=== PATIENT | female | born 1980 | race Caucasian/White ===

== ENCOUNTER 2019-03-23 06:17 | Emergency (ER) | payer BC ==
[2019-03-23] MEDS ORDERED: Robitussin AC Syrup Unit Dose Cup PO PRN (06:45)
[2019-03-23] MEDS ORDERED: PROVENTIL 2.5 MG/3 ML NEB IH ONE (06:45)
--- NOTE | 2019-03-23 06:49 | ERPHSYRPT ---
- History of Present Illness Time Seen by Provider: 03/23/19 06:47 Source: patient Exam Limitations: no limitations Patient Subjective Stated Complaint: pt states that cough began stephanie night and has increasingly gotten worse, pt state that she has taken otc medication with tylenol in it, pt states that she has been running fever, pt states that she has heaviness to chest and pain to neck due to coughing, pt states that she has productive cough with white/ clear sputum, pt states that she has trouble breathing due to coughing, pt states that she took OTC this morning at 0400 due to 103.4 temp Triage Nursing Assessment: pt ambulated into the er, pt axo x4, pt is tachycardic, hypertensive, pt has dry hacking cough, lung sounds are coarse in lower lobes Physician History: pt states that cough began stephanie night and has increasingly gotten worse, pt state that she has taken otc medication with tylenol in it, pt states that she has been running fever, pt states that she has heaviness to chest and pain to neck due to coughing, pt states that she has productive cough with white/ clear sputum, pt states that she has trouble breathing due to coughing, pt states that she took OTC this morning at 0400 due to 103.4 temp Timing/Duration: day(s) (3-4 days) Cough Quality/Degree: moderate, productive cough, sputum Associated Symptoms: fever, chills International travel in last 2 weeks: No Allergies/Adverse Reactions: No Known Drug Allergies Allergy (Verified 03/23/19 06:22) Home Medications: Amlodipine Besylate 5 mg [Norvasc 5 mg] 5 mg PO DAILY 04/19/14 [History] Triamterene/Hydrochlorothiazid [Triamterene-Hctz 37.5-25 mg Cp] 1 each PO DAILY 04/19/14 [History] Benazepril HCl 10 mg [Lotensin 10 MG] 10 mg PO DAILY 03/23/19 [History] Hx Tetanus, Diphtheria Vaccination/Date Given: Yes Hx Influenza Vaccination/Date Given: No Hx Pneumococcal Vaccination/Date Given: No - Review of Systems Constitutional: No Fever, No Chills Eyes: No Symptoms Ears, Nose, & Throat: No Symptoms Respiratory: Cough, No Dyspnea Cardiac: No Chest Pain, No Edema, No Syncope Abdominal/Gastrointestinal: No Abdominal Pain, No Nausea, No Vomiting, No Diarrhea Genitourinary Symptoms: No Dysuria Musculoskeletal: No Back Pain, No Neck Pain Skin: No Rash Neurological: No Dizziness, No Focal Weakness, No Sensory Changes Psychological: No Symptoms Endocrine: No Symptoms All Other Systems: Reviewed and Negative - Past Medical History Pertinent Past Medical History: Yes Neurological History: No Pertinent History ENT History: No Pertinent History Cardiac History: Hypertension Respiratory History: No Pertinent History Endocrine Medical History: No Pertinent History Musculoskeletal History: No Pertinent History GI Medical History: Hernia History: No Pertinent History Psycho-Social History: No Pertinent History Female Reproductive Disorders: Other Other Medical History: 2008. Cholecystectomy 2012 - Past Surgical History Past Surgical History: Yes Neuro Surgical History: No Pertinent History Cardiac: No Pertinent History Respiratory: No Pertinent History Gastrointestinal: Cholecystectomy Genitourinary: No Pertinent History Musculoskeletal: No Pertinent History Female Surgical History: Section - Social History Smoking Status: Never smoker Exposure to second hand smoke: No Drug Use: none Patient Lives Alone: No - Female History Hx Last Menstrual Period: 03/21/19 Hx Now: No - Nursing Vital Signs Nursing Vital Signs: Initial Vital Signs Temperature 98.6 F 03/23/19 06:25 Pulse Rate 120 H 03/23/19 06:25 Respiratory Rate 15 03/23/19 06:25 Blood Pressure 144/112 03/23/19 06:25 O2 Sat by Pulse Oximetry 96 03/23/19 06:25 - Physical Exam General Appearance: no apparent distress, alert Eye Exam: PERRL/EOMI, eyes nml inspection Ears, Nose, Throat Exam: normal ENT inspection, TMs normal, pharynx normal, moist mucous membranes Neck Exam: normal inspection, non-tender, supple, full range of motion Respiratory Exam: normal breath sounds, diminished breath sounds, rhonchi, wheezing, No respiratory distress Cardiovascular Exam: regular rate/rhythm, normal heart sounds Gastrointestinal/Abdomen Exam: soft, No tenderness Back Exam: normal inspection, No CVA tenderness, No vertebral tenderness Extremity Exam: normal inspection, normal range of motion Neurologic Exam: alert, oriented x 3, cooperative, normal mood/affect, sensation nml, No motor deficits Skin Exam: normal color, warm, dry, No rash Lymphatic Exam: No adenopathy SpO2: 96 - Course Nursing assessment & vital signs reviewed: Yes - Radiology Exams Chest X-ray Interpretation: Reviewed by me (bibasilar infiltrates) Ordered Tests: Active Orders 24 hr Category Date Time Status CHEST 2 VIEWS (PA AND LAT) Stat Exams 03/23/19 07:00 Taken BMP Stat Lab 03/23/19 07:05 Completed CBC W DIFF Stat Lab 03/23/19 07:05 Completed Peak Expiratory Flow Rate ONCE RT 03/23/19 07:30 Completed Respiratory Therapy Assessment DAILY RT 03/23/19 07:30 Completed Medication Summary Generic Name Dose Route Start Last Admin Trade Name Freq PRN Reason Stop Dose Admin Guaifenesin/Codeine Phosphate 10 ml 03/23/19 06:45 03/23/19 06:52 Robitussin Ac Syrup Unit Dose Cup PO 04/22/19 06:44 10 ml QIDP PRN Administration COUGH Ceftriaxone Sodium/Dextrose 1 g in 50 mls @ 100 mls/hr 03/23/19 07:41 07:48 Rocephin 1 Gm-D5w 50 Ml Bag IV 03/23/19 08:10 200 ml/hr STAT STA 200 mls/hr Administration Discontinued Medications Generic Name Dose Route Start Last Admin Trade Name Freq PRN Reason Stop Dose Admin Albuterol Sulfate 2.5 mg 03/23/19 06:45 03/23/19 07:10 Proventil 2.5 Mg/3 Ml Neb IH 03/23/19 06:46 2.5 mg STAT ONE Administration Albuterol/Ipratropium Confirm 03/23/19 06:59 Duoneb 0.5-3 Mg/3 Ml Neb Administered 03/23/19 07:00 Dose 3 ml IH .STK-MED ONE Ceftriaxone Sodium Confirm 03/23/19 07:52 Rocephin 1000 Mg Inj Administered 03/23/19 07:53 Dose 1,000 mg .ROUTE .STK-MED ONE Ceftriaxone Sodium/Dextrose Confirm 03/23/19 07:46 Rocephin 1 Gm-D5w 50 Ml Bag Administered 03/23/19 07:47 Dose 1 g in 50 mls @ ud IV .STK-MED ONE Lidocaine HCl Confirm 03/23/19 07:52 Xylocaine 1% Hcl 20 Ml Mdv Administered 03/23/19 07:53 Dose 3 ml .ROUTE .STK-MED ONE Lab/Rad Data: Laboratory Result Diagrams 03/23/19 07:05 03/23/19 07:05 Laboratory Results 03/23/19 03/23/19 03/23/19 Range/Units 07:08 07:05 07:05 WBC 11.3 H (4.0-10.5) K/mm3 RBC 5.21 (4.1-5.4) M/mm3 Hgb 13.8 (12.0-16.0) gm/dl Hct 42.7 (35-47) % MCV 82.0 (78-100) fl MCH 26.5 (26-32) pg MCHC 32.3 (32-36) g/dl RDW 14.2 H (11.5-14.0) % Plt Count 303 (150-450) K/mm3 MPV 9.1 (6-9.5) fl Gran % 78.1 H (36.0-66.0) % Eos # (Auto) 0.06 (0-0.5) Absolute Lymphs (auto) 1.22 (1.0-4.6) Absolute Monos (auto) 1.16 (0.0-1.3) Lymphocytes % 10.8 L (24.0-44.0) % Monocytes % 10.3 (0.0-12.0) % Eosinophils % 0.5 (0.00-5.0) % Basophils % 0.3 (0.0-0.4) % Absolute Granulocytes 8.80 H (1.4-6.9) Basophils # 0.03 (0-0.4) Sodium 136 L (137-145) mmol/L Potassium 3.8 (3.5-5.1) mmol/L Chloride 99 (98-107) mmol/L Carbon Dioxide 29 (22-30) mmol/L Anion Gap 12.2 (5-15) MEQ/L BUN 10 (7-17) mg/dL Creatinine 0.95 (0.52-1.04) mg/dL Estimated GFR > 60.0 ML/MIN Glucose 123 H (74-106) mg/dL Calcium 9.3 (8.4-10.2) mg/dL Influenza Type A Ag NEGATIVE (NEGATIVE) Influenza Type B Ag NEGATIVE (NEGATIVE) RSV (PCR) NEGATIVE (Negative) - Progress Progress: improved Air Movement: good Blood Culture(s) Obtained: No Antibiotics given: Yes Counseled pt/family regarding: lab results, diagnosis, need for follow-up, rad results - Departure Departure Disposition: Home Clinical Impression: Pneumonia Qualifiers: Pneumonia type: due to unspecified organism Laterality: bilateral Lung location : lower lobe of lung Qualified Code(s): J18.9 - Pneumonia, unspecified organism Condition: Stable Critical Care Time: No Referrals: FARIDA MASTERSON [Primary Care Provider] - Instructions: Pneumonia, Adult (DC) Additional Instructions: Discharge/Care Plan WYATT WELLS was seen on 03/23/19 in the Emergency Room. The patient was counseled regarding Diagnosis,Lab results, Imaging studies, need for follow up and when to return to the Emergency Room. Prescriptions given: Discharge Note I have spoken with the patient and/or caregivers. I have explained the patient' s condition, diagnosis and treatment plan based on the information available to me at this time. I have answered the patient's and/or caregiver's questions and addressed any concerns. The patient and/or caregivers have as good understanding of the patient's diagnosis, condition and treatment plan as can be expected at this point. The vital signs have been stable. The patient's condition is stable and appropriate for discharge from the emergency department. The patient will pursue further outpatient evaluation with the primary care physician or other designated or consulting physician as outlined in the discharge instructions. The patient and/or caregivers are agreeable to this plan of care and follow-up instructions have been explained in detail. The patient and/or caregivers have received these instruction. The patient/and or caregivers are aware that any significant change in condition or worsening of symptoms should prompt an immediate return to this or the closest emergency department or call 911. WYATT WELLS was seen on 03/23/19 n the Emergency Room. At that time you were treated for an emergent condition, during your visit Laboratory, Radiology and/or other procedures may have been ordered. It is very important that you follow-up with your Primary Care Physician FARIDA MASTERSON within the next 24-48 hours to review your Emergency Room visit and the final results of testing that was ordered. Some test results such as Urine Cultures, Blood Cultures, and other cultures if ordered will not be finalized for 24-48 hours. If you do not have a Primary Care Provider please call the medical records department at [phone] ext [phone] to obtain a copy of your results or you may sign into our patient portal to obtain these results by visiting us @ [email or web address] and completing the following steps: 1. Click on the Patient Portal link 2. Click the Patient Self Enrollment Link to complete the enrollment form and entering your 3. Once the enrollment form is completed you will receive an email with a temporary ID and password at the email address you provided. 4. Next choose a user name and password. Your user name must be at least 4 characters long and your password must be at least 4 characters long. 5. Choose a security question from the list and provide your answer to the question. If you already have signed into the Health Portal you may access your Health Care Information 17/10 by the following steps: 1. Login to our website @ [email or web address] 2. Enter your original user name and password. FAQS The [facility] Health Portal is an online tool that contains your Lab Results, Radiology Reports, Visit History, Discharge Instructions and Health Summary Lab and Radiology Results will not be available for 72 hours on the portal. The Portal is a secure site, passwords are encryted and URLs are re-written so they cannot be copied and pasted. You and authorized family members are the only ones who can access your Portal. Also there is a timeout feature that protects your information if you leave the Portal page open. If you have technical difficulty please use the Contact Us link on the page this will allow you to submit any questions you have regarding the Portal or you may contact the Medical Record Department at [phone]. Prescriptions: Cephalexin Mh 500 mg [Keflex 500 mg] 500 mg PO Q6H #40 capsule Albuterol Sulfate [Proair Hfa] 8.5 gm IH QID #1 hfa.aer.[id number] Benzonatate [Tessalon Perle] 100 mg PO QID #30 capsule
[2019-03-23] MEDS ORDERED: Robitussin AC Syrup Unit Dose Cup ONE (06:51)
[2019-03-23] MEDS ORDERED: DUONEB 0.5-3 MG/3 ml Neb IH ONE (06:59)
[2019-03-23 07:25] LABS: ANION GAP 12.2 MEQ/L (5-15); BLOOD UREA NITROGEN 10 mg/dL (7-17); CHLORIDE 99 mmol/L (98-107); Calcium 9.3 mg/dL (8.4-10.2); Carbon Dioxide 29 mmol/L (22-30); Creatinine 1 0.95 mg/dL (0.52-1.04); Glucose 123 mg/dL (74-106); Potassium 3.8 mmol/L (3.5-5.1); SODIUM 136 mmol/L (137-145)
[2019-03-23 07:28] LABS: BASOPHIL % 0.3 % (0.0-0.4); Basophil (Absolute #) 0.03 (0-0.4); Eosinophil % 0.5 % (0.00-5.0); Eosinophil (Absolute #) 0.06 (0-0.5); Hematocrit 42.7 % (35-47); Hemoglobin 13.8 gm/dl (12.0-16.0); Lymphocyte (Absolute #) 1.22 (1.0-4.6); Lymphocytes % 10.8 % (24.0-44.0); Mean Corpuscular Hemoglobin 26.5 pg (26-32); Mean Corpuscular Hgb Concent. 32.3 g/dl (32-36); Mean Platelet Volume 9.1 fl (6-9.5); Monocyte (Absolute #) 1.16 (0.0-1.3); Monocytes % 10.3 % (0.0-12.0); Neutrophil % 78.1 % (36.0-66.0); Platelet Count 303 K/mm3 (150-450); Red Blood Count 5.21 M/mm3 (4.1-5.4); Red Cell Distribution Width 14.2 % (11.5-14.0); White Blood Count 11.3 K/mm3 (4.0-10.5)
[2019-03-23] MEDS ORDERED: ROCEPHIN 1 Gm-D5w 50 ml Bag** 0 G/0 ML IVPB IV ONE (07:46)
[2019-03-23] MEDS: ROCEPHIN 1 Gm-D5w 50 ml Bag** 1 G/50 ML IVPB IV STA ×2 (07:48→08:16)
[2019-03-23 07:51] LABS: INFLUENZA A NEGATIVE (NEGATIVE); INFLUENZA B NEGATIVE (NEGATIVE); RESPIRATORY SYNCTIAL VIRUS NEGATIVE (Negative)
[2019-03-23] MEDS ORDERED: XYLOCAINE 1% HCL 20 ML MDV ONE (07:52)
[2019-03-23] MEDS ORDERED: Rocephin 1000 MG INJ ONE (07:52)
[2019-03-23 08:07] VITALS: BP 103/64; PULSE 83; O2SAT 93
[2019-03-23] MEDS ORDERED: Rocephin 1000 MG INJ IM ONE (08:16)
--- NOTE | 2019-03-23 11:40 | XRAY ---
Indication: Fever and cough. Comparison: June 09, 2014. PA/lateral chest demonstrates new left mid to lower lung infiltrate. Remaining heart, right lung, and bony thorax normal.
== END 2019-03-23 08:18 | disposition home or self-care (01) ==
LOC: ED 06:17
DX: J18.9 Pneumonia, unspecified organism (principal)
CPT/HCPCS: 36415; 71046; 80048; 85025; 87631; 94150; 94640; 96372; 99284; J0696; J7609; A9270-GY

== ENCOUNTER 2019-07-12 18:59 | Emergency (ER) | payer BC ==
--- NOTE | 2019-07-12 19:03 | ERPHSYRPT ---
- History of Present Illness Time Seen by Provider: 07/12/19 19:03 Source: patient Exam Limitations: no limitations Physician History: This is a 38-year-old obese white female who presents to the emergency department with right ankle pain. Patient was taking out her trash when she tripped and fell and rolled her right ankle. Patient states she can walk on her foot but it hurts to do so. She also has noted that there is significant lateral/outside ankle swelling. Method of Injury: fell Occurred: just prior to arrival Quality: aching, throbbing Severity of Pain-Max: moderate Severity of Pain-Current: moderate Lower Extremities Pain: ankle: right Modifying Factors: Improves With: immobilization, movement Associated Symptoms: other Allergies/Adverse Reactions: No Known Drug Allergies Allergy (Verified 03/23/19 06:22) Home Medications: Amlodipine Besylate 5 mg [Norvasc 5 mg] 5 mg PO DAILY 04/19/14 [History] Triamterene/Hydrochlorothiazid [Triamterene-Hctz 37.5-25 mg Cp] 1 each PO DAILY 04/19/14 [History] Benazepril HCl 10 mg [Lotensin 10 MG] 10 mg PO DAILY 03/23/19 [History] Hx Tetanus, Diphtheria Vaccination/Date Given: Yes Hx Influenza Vaccination/Date Given: No Hx Pneumococcal Vaccination/Date Given: No Travel Risk - International Travel Have you traveled outside of the country in past 3 weeks: No Have you or anyone close to you been diagnosed with or: No Do your reside in a community with a known COVID-19 case?: Yes - Coronavirus Screening Has patient experienced Coronavirus symptoms: No - Review of Systems Constitutional: No Symptoms Eyes: No Symptoms Ears, Nose, & Throat: No Symptoms Respiratory: No Symptoms Cardiac: No Symptoms Abdominal/Gastrointestinal: No Symptoms Genitourinary Symptoms: No Symptoms Musculoskeletal: Fall, Injury (Right ankle), Joint Pain Skin: No Symptoms Neurological: No Symptoms Psychological: No Symptoms Endocrine: No Symptoms Hematologic/Lymphatic: No Symptoms Immunological/Allergic: No Symptoms All Other Systems: Reviewed and Negative - Past Medical History Pertinent Past Medical History: Yes Neurological History: No Pertinent History ENT History: No Pertinent History Cardiac History: Hypertension Respiratory History: No Pertinent History Endocrine Medical History: No Pertinent History Musculoskeletal History: No Pertinent History GI Medical History: Hernia History: No Pertinent History Psycho-Social History: No Pertinent History Female Reproductive Disorders: Other Other Medical History: 2008. Cholecystectomy 2013 - Past Surgical History Past Surgical History: Yes Neuro Surgical History: No Pertinent History Cardiac: No Pertinent History Respiratory: No Pertinent History Gastrointestinal: Cholecystectomy Genitourinary: No Pertinent History Musculoskeletal: No Pertinent History Female Surgical History: Section - Social History Smoking Status: Never smoker Exposure to second hand smoke: No Drug Use: none Patient Lives Alone: No - Nursing Vital Signs Nursing Vital Signs: Initial Vital Signs Temperature 98.3 F 07/12/19 18:59 Pulse Rate 112 H 07/12/19 18:59 Respiratory Rate 18 07/12/19 18:59 Blood Pressure 171/109 07/12/19 18:59 O2 Sat by Pulse Oximetry 97 07/12/19 18:59 Pain Scale Pain Intensity 5 - Physical Exam General Appearance: no apparent distress, alert, anxiety, obese Eyes, Ears, Nose, Throat Exam: normal ENT inspection, moist mucous membranes Neck Exam: normal inspection, non-tender, supple, full range of motion Cardiovascular/Respiratory Exam: chest non-tender Gastrointestinal/Abdominal Exam: non-tender Back Exam: normal inspection, normal range of motion, No CVA tenderness, No vertebral tenderness Hips Exam: bilateral: non-tender, normal inspection, normal range of motion, no evidence of injury Legs Exam: bilateral leg: non-tender, normal inspection, normal range of motion , no evidence of injury Knees Exam: bilateral knee: non-tender, normal inspection, normal range of motion, no evidence of injury Ankle Exam: right ankle: soft tissue tenderness, swelling (Laterally), left ankle: non-tender, normal inspection, normal range of motion, no evidence of injury Foot Exam: bilateral foot: non-tender, normal inspection, normal range of motion , no evidence of injury Neuro/Tendon Exam: normal sensation, normal motor functions, normal tendon functions, responds to pain Mental Status Exam: alert, oriented x 3, cooperative Skin Exam: normal color, warm, dry SpO2 Interpretation: normal O2 Delivery: Room Air - Course Nursing assessment & vital signs reviewed: Yes Ordered Tests: Active Orders 24 hr Category Date Time Status ANKLE (3 VIEWS) Stat Exams 07/12/19 19:23 Taken Medication Summary Discontinued Medications Generic Name Dose Route Start Last Admin Trade Name Freq PRN Reason Stop Dose Admin Oxycodone/Acetaminophen 1 tab 04/17/20 20:52 07/12/19 20:55 Percocet Tablet 5/325mg PO 07/12/19 20:53 1 tab STAT STA Administration Oxycodone/Acetaminophen Confirm 07/12/19 20:54 Percocet Tablet 5/325mg Administered 07/12/19 20:55 Dose 1 tab .ROUTE .STK-MED ONE - Progress Progress Note: 07/12/19 21:22 X-ray of right ankle reveals no evidence of any acute fracture or dislocation. Counseled pt/family regarding: diagnosis, need for follow-up, rad results - Departure Departure Disposition: Home Clinical Impression: Right ankle sprain Condition: Stable Critical Care Time: No Referrals: FARIDA MASTERSON [Primary Care Provider] - Additional Instructions: Ice pack to area 3 times a day for the next 3 days. Add ibuprofen to your pain regimen. Take with food. Follow-up with your primary care physician for persistent pain. Prescriptions: Oxycodone HCl/Acetaminophen [Percocet 5-325 mg Tablet] 1 each PO Q8H PRN PRN #6 tablet MDD 3 PRN Reason: Pain
[2019-07-12] MEDS ORDERED: PERCOCET TABLET 5/325MG PO STA (20:52)
[2019-07-12] MEDS ORDERED: PERCOCET TABLET 5/325MG ONE (20:54)
[2019-07-12 21:00] VITALS: BP 144/87; O2SAT 99
[2019-07-12 21:45] VITALS: PULSE 95
--- NOTE | 2019-07-12 22:35 | XRAY ---
Indication: Pain and swelling following fall. Comparison: March 12, 2018. 3 views of the right ankle demonstrates new anterolateral soft tissue swelling and stable small heel spurs. No other bony, articular, or soft tissue abnormalities.
== END 2019-07-12 21:41 | disposition home or self-care (01) ==
LOC: ED 18:59
DX: S93.401A Sprain of unspecified ligament of right ankle, initial encounter (principal); W01.0XXA Fall on same level from slipping, tripping and stumbling without subsequent striking against object, initial encounter; M25.571 Pain in right ankle and joints of right foot
CPT/HCPCS: 73610; 99284; A9270-GY

== ENCOUNTER 2022-09-10 03:04 | Emergency (ER) | payer BC ==
[2022-09-10 04:17] LABS: INFLUENZA A NEGATIVE (NEGATIVE); INFLUENZA B NEGATIVE (NEGATIVE); RESPIRATORY SYNCTIAL VIRUS NEGATIVE (NEGATIVE); SARS-CoV-2 Xpert Express NEGATIVE (NEGATIVE)
[2022-09-10] MEDS ORDERED: HYDROCODONE-ACETAMIN 2.5-108/5 ML SOLUTION PO STA (04:35)
[2022-09-10] MEDS ORDERED: DELTASONE 20 MG PO ONE (04:35)
--- NOTE | 2022-09-10 04:36 | ERPHSYRPT ---
- History of Present Illness Time Seen by Provider: 09/10/22 03:40 Source: patient Exam Limitations: no limitations Patient Subjective Stated Complaint: pt states productive cough for the past 6 days Triage Nursing Assessment: pt ambulated into the er; pt is axo x4; c/o cough; denies SOB; pt states pain with cough and deep breath; clear lung sounds in all lobes; afebrile; dry hacky cough present; c/o sorethroat; hypertensive; skin PDW Physician History: This is an overweight 41-year-old white female patient of Dr. Hinds who has had a productive cough for 6 days. She tried drinking fluids using her inhaler but her symptoms persisted. He denies a sore throat denies shortness of breath and has chest pain only with coughing. She has yellowish sputum with cough. Patient has a history of obesity, gastroesophageal reflux disease and hypertension. Timing/Duration: day(s) (6) Cough Quality/Degree: mild, productive cough, sputum Possible Cause: occasional episodes (Yellowish) Modifying Factors: Improves With: albuterol inhaler, coughing Associated Symptoms: chest pain/soreness, cough (With cough only) Allergies/Adverse Reactions: No Known Drug Allergies Allergy (Verified 09/10/22 03:05) Home Medications: Amlodipine Besylate 5 mg [Norvasc 5 mg] 5 mg PO DAILY 04/19/14 [History] Triamterene/Hydrochlorothiazid [Triamterene-Hctz 37.5-25 mg Cp] 1 each PO DAILY 04/19/14 [History] Losartan Potassium 50 mg PO DAILY 09/10/22 [History] Omeprazole 20 mg PO DAILY 09/10/22 [History] Hx Tetanus, Diphtheria Vaccination/Date Given: Yes Hx Influenza Vaccination/Date Given: Yes Hx Pneumococcal Vaccination/Date Given: No Travel Risk - International Travel Have you traveled outside of the country in past 3 weeks: No - Coronavirus Screening Are you exhibiting any of the following symptoms?: Yes Symptoms: Fever, Cough: New Onset, Shortness of Breath, Headaches/Body Aches/Fatigue Close contact with a COVID-19 positive Pt in past 14-21 Days: No - Vaccine Status Have you recieved a Covid-19 vaccination: Yes 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: [place] - Vaccination Dates Date of 2cond Vaccination (if applicable): unknown - Review of Systems Constitutional: No Symptoms Eyes: No Symptoms Ears, Nose, & Throat: No Symptoms Respiratory: Cough Cardiac: No Symptoms Abdominal/Gastrointestinal: No Symptoms Genitourinary Symptoms: No Symptoms Musculoskeletal: No Symptoms Skin: No Symptoms Neurological: No Symptoms Psychological: No Symptoms Endocrine: No Symptoms Hematologic/Lymphatic: No Symptoms Immunological/Allergic: No Symptoms All Other Systems: Reviewed and Negative - Past Medical History Pertinent Past Medical History: Yes Neurological History: No Pertinent History ENT History: No Pertinent History Cardiac History: Hypertension Respiratory History: No Pertinent History Endocrine Medical History: No Pertinent History Musculoskeletal History: No Pertinent History GI Medical History: GERD, Hernia History: No Pertinent History Psycho-Social History: No Pertinent History Female Reproductive Disorders: Other Other Medical History: 2008. Cholecystectomy 2012 - Past Surgical History Past Surgical History: Yes Neuro Surgical History: No Pertinent History Cardiac: No Pertinent History Respiratory: No Pertinent History Gastrointestinal: Cholecystectomy Genitourinary: No Pertinent History Musculoskeletal: No Pertinent History Female Surgical History: Section - Social History Smoking Status: Never smoker Exposure to second hand smoke: No Drug Use: none Patient Lives Alone: No - Female History Hx Now: No - Nursing Vital Signs Nursing Vital Signs: Initial Vital Signs Temperature 97.7 F 09/10/22 03:04 Pulse Rate 95 H 09/10/22 03:04 Respiratory Rate 22 09/10/22 03:04 Blood Pressure 158/95 09/10/22 03:04 O2 Sat by Pulse Oximetry 97 09/10/22 03:04 Pain Scale Pain Intensity 0 - Physical Exam General Appearance: no apparent distress, alert, anxiety, obese Eye Exam: PERRL/EOMI, eyes nml inspection Ears, Nose, Throat Exam: normal ENT inspection, moist mucous membranes Neck Exam: normal inspection, non-tender, supple, full range of motion Respiratory Exam: normal breath sounds, lungs clear, airway intact, No chest tenderness, No respiratory distress Cardiovascular Exam: regular rate/rhythm, normal heart sounds, normal peripheral pulses Gastrointestinal/Abdomen Exam: No tenderness Rectal Exam: not done Back Exam: normal inspection, normal range of motion, vertebral tenderness, No CVA tenderness Extremity Exam: normal inspection, normal range of motion, pelvis stable Neurologic Exam: alert, oriented x 3, cooperative, intern architect II-XII nml as tested, normal mood/affect, nml cerebellar function, nml station & gait, sensation nml Skin Exam: normal color, warm, dry Lymphatic Exam: No adenopathy SpO2 Interpretation: borderline oxygenation SpO2: 93 O2 Delivery: Room Air - Course Nursing assessment & vital signs reviewed: Yes Ordered Tests: Active Orders 24 hr Category Date Time Status CHEST 1 VIEW (PORTABLE) Stat Exams 09/10/22 03:22 Taken Medication Summary Discontinued Medications Generic Name Dose Route Start Last Admin Trade Name Shashank PRN Reason Stop Dose Admin Hydrocodone Bitart/Acetaminophen 10 ml 09/10/22 04:35 09/10/22 04:45 Hydrocodone/Acetaminophen 5 Ml Udcup PO 09/10/22 04:36 10 ml STAT STA Administration Hydrocodone Bitart/Acetaminophen Confirm 09/10/22 04:44 Hydrocodone/Acetaminophen 5 Ml Udcup Administered 09/10/22 04:45 Dose 10 ml .ROUTE .STK-MED ONE Ceftriaxone Sodium 1,000 mg 09/10/22 04:37 09/10/22 04:45 Ceftriaxone Sodium 1000 Mg Inj Vial IM 09/10/22 04:38 1,000 mg STAT ONE Administration Ceftriaxone Sodium Confirm 09/10/22 04:44 Ceftriaxone Sodium 1000 Mg Inj Vial Administered 09/10/22 04:45 Dose 1,000 mg .ROUTE .STK-MED ONE Prednisone 20 mg 09/10/22 04:35 09/10/22 04:45 Prednisone 20 Mg Tablet PO 09/10/22 04:36 20 mg STAT ONE Administration Prednisone Confirm 09/10/22 04:44 Prednisone 20 Mg Tablet Administered 09/10/22 04:45 Dose 20 mg .ROUTE .STK-MED ONE Lab/Rad Data: Laboratory Results 09/10/22 09/10/22 Range/Units 03:37 03:37 Influenza Type A Ag NEGATIVE (NEGATIVE) Influenza Type B Ag NEGATIVE (NEGATIVE) RSV (PCR) NEGATIVE (NEGATIVE) SARS-CoV-2 (PCR) NEGATIVE (NEGATIVE) Group A Strep Antibody NOT DETECTED (NEGATIVE) - Progress Progress: improved, re-examined Air Movement: good Progress Note: 09/10/22 05:11 Chest x-ray was interpreted by me. Chest x-ray does not show any acute cardiopulmonary process. This patient's medical issue is 1 of low to moderate complexity. The level of complexity in the work-up performed is based on review of the patient's past medical history, review of the patient's medication list, review of the patient's drug allergy list, history of present illness and the physical findings on examination. The work-up in this patient includes a chest x-ray, strep test, viral swabs. I reviewed the results of the studies. The patient has an upper respiratory infection. It is difficult to determine whether this is viral or bacterial. We will cover the patient for a bacterial infection using Rocephin 1 g intramuscularly and treat her symptoms with hydrocodone-based cough medicine and steroids. Blood Culture(s) Obtained: No Antibiotics given: Yes Counseled pt/family regarding: lab results, diagnosis, need for follow-up, rad results Medical Desision Making - Independent Historian Additional History obtained from: Spouse - Diagnostic Testing Diagnostic test were ordered, analyzed, and reviewed by me: Yes Radiological Interpretation: Interpreted by me - Risk of complications The pt has a mod risk of morbidity or mortality based on: Need for prescription drug management - Departure Departure Disposition: Home Clinical Impression: Upper respiratory infection Condition: Stable Critical Care Time: No Referrals: FARIDA HINDS [Primary Care Provider] - Follow up/PCP as directed Additional Instructions: Drink plenty of fluids. Avoid exposure to any kind of smoke. Take your medication as prescribed. Call your primary care physician on 09/12/2022, for further evaluation and management Prescriptions: Hydrocodone/Acetaminophen [Hydrocodone-Acetamn 7.5-325/15] 10 ml PO Q8H PRN PRN #120 ml MDD 30 ml PRN Reason: Cough Prednisone 10 mg [Deltasone 10 mg] 10 mg PO TID #12 tablet Azithromycin 250 mg [Zithromax 250 MG TABLET] 250 mg PO ZPACK #6 tablet
[2022-09-10] MEDS ORDERED: Rocephin 1000 MG INJ IM ONE (04:37)
[2022-09-10] MEDS ORDERED: HYDROCODONE-ACETAMIN 2.5-108/5 ML SOLUTION ONE (04:44)
[2022-09-10] MEDS ORDERED: DELTASONE 20 MG ONE (04:44)
[2022-09-10] MEDS ORDERED: Rocephin 1000 MG INJ ONE (04:44)
[2022-09-10 05:06] VITALS: BP 130/95; PULSE 93
[2022-09-10 05:14] VITALS: O2SAT 93
--- NOTE | 2022-09-10 07:41 | XRAY ---
Indication: Pain and cough. Comparison: March 23, 2019 Portable chest inflated and is now clear. Heart not enlarged. Bony thorax intact. No new/acute findings.
== END 2022-09-10 05:25 | disposition home or self-care (01) ==
LOC: ED 03:04
DX: J06.9 Acute upper respiratory infection, unspecified (principal); R05.1 Acute cough; I10 Essential (primary) hypertension; Z79.891 Long term (current) use of opiate analgesic; Z79.52 Long term (current) use of systemic steroids; Z79.899 Other long term (current) drug therapy
CPT/HCPCS: 0241U; 71045; 87651; 96372; 99283; J0696; A9270-GY

== ENCOUNTER 2022-10-06 00:06 | Emergency (ER) | payer BC ==
[2022-10-06] MEDS ORDERED: XYLOCAINE 1% HCL 20 ML MDV IJ ONE (00:07)
[2022-10-06] MEDS ORDERED: TORAdol 30 mg Injection IM ONE (00:19)
[2022-10-06] MEDS ORDERED: Rocephin 1000 MG INJ IM ONE (00:20)
[2022-10-06 00:24] VITALS: PULSE 94
[2022-10-06 00:27] VITALS: O2SAT 98
--- NOTE | 2022-10-06 00:27 | ERPHSYRPT ---
- History of Present Illness Time Seen by Provider: 10/06/22 00:23 Exam Limitations: no limitations Physician History: Patient is a 41-year-old female presents to our ED for evaluation of a earache. Symptoms started approximately 1 week ago. Patient went to [facility]. Patient was diagnosed with "fluid in her ear". Patient was given eardrops. Patient states eardrops has not helped. Patient's pain is now radiating to her throat area. No trauma. No fever. No nausea vomiting or diaphoresis. Pain is moderate in intensity. No specific worsening improving factors. Patient voices no other complaints or concerns at this time. Portions of this note were created with voice recognition technology. There may be grammatical, spelling, punctuation or sound alike errors Timing/Duration: gradual onset Severity: moderate ENT Location: ear (L) Prearrival Treatment: over the counter meds (Patient had a gram of Tylenol at 7 PM.) Modifying Factors: Improves With: nothing Associated Symptoms: denies symptoms, No dizziness, No ear drainage, No facial pain/swelling, No neck pain, No tooth pain, No difficulty swallowing Allergies/Adverse Reactions: No Known Drug Allergies Allergy (Verified 10/06/22 00:24) Home Medications: Amlodipine Besylate 5 mg [Norvasc 5 mg] 5 mg PO DAILY 04/19/14 [History] Triamterene/Hydrochlorothiazid [Triamterene-Hctz 37.5-25 mg Cp] 1 each PO DAILY 04/19/14 [History] Losartan Potassium 50 mg PO DAILY 09/10/22 [History] Omeprazole 20 mg PO DAILY 09/10/22 [History] Hx Tetanus, Diphtheria Vaccination/Date Given: Yes Hx Influenza Vaccination/Date Given: Yes Hx Pneumococcal Vaccination/Date Given: No Travel Risk - Vaccine Status Have you recieved a Covid-19 vaccination: Yes 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: [employer] - Vaccination Dates Date of 2cond Vaccination (if applicable): unknown - Review of Systems Constitutional: No Symptoms, No Fever, No Chills Eyes: No Symptoms Ears, Nose, & Throat: No Symptoms Respiratory: No Symptoms, No Cough, No Dyspnea Cardiac: No Symptoms, No Chest Pain, No Edema, No Syncope Abdominal/Gastrointestinal: No Symptoms, No Abdominal Pain, No Nausea, No Vomit ing, No Diarrhea Genitourinary Symptoms: No Symptoms, No Dysuria Musculoskeletal: No Symptoms, No Back Pain, No Neck Pain Skin: No Symptoms, No Rash Neurological: No Symptoms, No Dizziness, No Focal Weakness, No Sensory Changes Psychological: No Symptoms Endocrine: No Symptoms Hematologic/Lymphatic: No Symptoms Immunological/Allergic: No Symptoms All Other Systems: Reviewed and Negative - Past Medical History Pertinent Past Medical History: Yes Neurological History: No Pertinent History ENT History: No Pertinent History Cardiac History: Hypertension Respiratory History: No Pertinent History Endocrine Medical History: No Pertinent History Musculoskeletal History: No Pertinent History GI Medical History: GERD, Hernia History: No Pertinent History Psycho-Social History: No Pertinent History Female Reproductive Disorders: Other Other Medical History: 2008. Cholecystectomy 2012 - Past Surgical History Past Surgical History: Yes Neuro Surgical History: No Pertinent History Cardiac: No Pertinent History Respiratory: No Pertinent History Gastrointestinal: Cholecystectomy Genitourinary: No Pertinent History Musculoskeletal: No Pertinent History Female Surgical History: Section - Social History Smoking Status: Never smoker Exposure to second hand smoke: No Drug Use: none Patient Lives Alone: No - Nursing Vital Signs Nursing Vital Signs: Initial Vital Signs Temperature 97.8 F 10/06/22 00:16 Pulse Rate 94 H 10/06/22 00:16 Respiratory Rate 18 10/06/22 00:16 O2 Sat by Pulse Oximetry 95 10/06/22 00:16 Pain Scale Pain Intensity 8 - Physical Exam General Appearance: no apparent distress, alert Eye Exam: bilateral eye: normal inspection, PERRL, EOMI Ear Exam: right ear: auricle normal, canal normal, TM normal, left ear: TM bulging Nasal Exam: normal inspection Throat Exam: normal, pharynx normal, moist mucus membranes, No dental tenderness, No tonsillar exudate Neck Exam: normal inspection, non-tender, supple, full range of motion Cardiovascular/Respiratory Exam: chest non-tender, normal breath sounds, regular rate/rhythm Abdominal Exam: non-tender, soft Neurologic Exam: alert, oriented x 3, sensation nml, No motor deficits Skin Exam: normal color, warm, dry SpO2 Interpretation: normal SpO2: 98 O2 Delivery: Room Air - Course Nursing assessment & vital signs reviewed: Yes Ordered Tests: Medication Summary Discontinued Medications Generic Name Dose Route Start Last Admin Trade Name Freq PRN Reason Stop Dose Admin Ceftriaxone Sodium 1,000 mg 10/06/22 00:20 Ceftriaxone Sodium 1000 Mg Inj Vial IM 10/06/22 00:21 STAT ONE Ketorolac Tromethamine 60 mg 10/06/22 00:19 Ketorolac Tromethamine 30 Mg/Ml Inj IM 10/06/22 00:20 STAT ONE - Progress Progress: improved Progress Note: Patient is a 41-year-old female presents to our ED with left ear pain. Physical exam reveals bulging of the left ear. Diagnosis is otitis media. Patient received IM Rocephin and IM Toradol for pain control. A prescription for Toradol and Augmentin forwarded to patient's pharmacy. We will discharge patient home. Patient agrees to follow-up with her primary care doctor within 48 hours for reevaluation. She voices no other complaints or concerns at this time. Portions of this note were created with voice recognition technology. There may be grammatical, spelling, punctuation or sound alike errors Complexity of problem addressed is low acute uncomplicated No critical care time Complexity of data reviewed and analyzed is none. No specialized testing ordered. Diagnosis made based on history and physical examination. Risk of complication and or risk morbidity/mortality of patient management is moderate. A prescription for Toradol and Augmentin was forwarded to patient's pharmacy. Patient agrees to follow-up with her primary care doctor within 48 hours for reevaluation. Vital stable. Time spent to discharge patient approximately 15 minutes. Plan of care established via shared decision making. No social determinants of health present to impede follow-up. Patient voices no other complaints or concerns at this time. Portions of this note were created with voice recognition technology. There may be grammatical, spelling, punctuation or sound alike errors 10/06/22 00:34 Counseled pt/family regarding: diagnosis, need for follow-up - Departure Departure Disposition: Home Clinical Impression: Otitis media Condition: Stable Critical Care Time: No Referrals: FARIDA MASTERSON [Primary Care Provider] - Follow up/PCP as directed Additional Instructions: Discharge/Care Plan WYATT WELLS was seen on 10/06/22 in the Emergency Room. The patient was counseled regarding Diagnosis,Lab results, Imaging studies, need for follow up and when to return to the Emergency Room. Prescriptions given: Discharge Note I have spoken with the patient and/or caregivers. I have explained the patient's condition, diagnosis and treatment plan based on the information available to me at this time. I have answered the patient's and/or caregiver's questions and addressed any concerns. The patient and/or caregivers have as good understanding of the patient's diagnosis, condition and treatment plan as can be expected at this point. The vital signs have been stable. The patient's condition is stable and appropriate for discharge from the emergency department. The patient will pursue further outpatient evaluation with the primary care physician or other designated or consulting physician as outlined in the discharge instructions. The patient and/or caregivers are agreeable to this plan of care and follow-up instructions have been explained in detail. The patient and/or caregivers have received these instruction. The patient/and or caregivers are aware that any significant change in condition or worsening of symptoms should prompt an immediate return to this or the closest emergency department or call 911. Prescriptions: Amox Tr/Potass Clav. 875 mg [Augmentin 875-125 Tablet] 875 mg PO BID 7 Days #14 tablet Ketorolac Trometh 10 mg Tab [TORAdol 10 MG TABLET] 10 mg PO TID 5 Days #15 tablet
[2022-10-06] MEDS ORDERED: Rocephin 1000 MG INJ ONE (00:33)
[2022-10-06] MEDS ORDERED: TORAdol 30 mg Injection ONE (00:33)
== END 2022-10-06 00:56 | disposition home or self-care (01) ==
LOC: ED 00:06
DX: H66.92 Otitis media, unspecified, left ear (principal); H92.02 Otalgia, left ear; R07.0 Pain in throat; I10 Essential (primary) hypertension; Z79.899 Other long term (current) drug therapy
CPT/HCPCS: 96372; 99283; J0696; J1885

== ENCOUNTER 2023-01-01 10:34 | Emergency (ER) | payer BC ==
--- NOTE | 2023-01-01 10:41 | ERPHSYRPT ---
- History of Present Illness Time Seen by Provider: 01/01/23 10:40 Source: patient, family Exam Limitations: no limitations Physician History: pt and family state diarrhea and think it may be food poisoning. She relates it to a specific meal recently. NO Vomiting. No prior intestinal conditions reported. No resp symptoms. No CP or SOBreath. No abd pain but some epigastric aching ( Hx reflux. txd. Chest clear Ht reg without M. Abd soft mild epigastric tenderness consistent with reflux condition/ no rebound or peritoneal signs or masses or distension. . Normal neuro and mental status. is present in ER and provided additional independent source for Hx. Discussed rsiks/benefits of testing/Tx with pt and family including taiwo, lipase, CBC, CMP, Stool panel, IVF, Zofran, and they wish to proceed and also to hold off on CT at this time with current findings; these are ordered and results discussed. Timing/Duration: hour(s) Severity: moderate Modifying Factors: Improves With: nothing Associated Symptoms: nausea, No vomiting, No abdominal pain, No shortness of breath, No cough, No chills, No chest pain, No rash Allergies/Adverse Reactions: No Known Drug Allergies Allergy (Verified 01/01/23 10:42) Home Medications: Amlodipine Besylate 5 mg [Norvasc 5 mg] 5 mg PO DAILY 04/19/14 [History] Triamterene/Hydrochlorothiazid [Triamterene-Hctz 37.5-25 mg Cp] 1 each PO DAILY 04/19/14 [History] Losartan Potassium 50 mg PO DAILY 09/10/22 [History] Omeprazole 20 mg PO DAILY 09/10/22 [History] Hx Tetanus, Diphtheria Vaccination/Date Given: Yes Hx Influenza Vaccination/Date Given: Yes Hx Pneumococcal Vaccination/Date Given: No Travel Risk - Vaccine Status Have you recieved a Covid-19 vaccination: Yes 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[employer] - Vaccination Dates Date of 2cond Vaccination (if applicable): unknown - Review of Systems Constitutional: No Fever, No Chills Eyes: No Symptoms Ears, Nose, & Throat: No Symptoms Respiratory: No Cough, No Dyspnea Cardiac: No Chest Pain, No Edema, No Syncope Abdominal/Gastrointestinal: Nausea, Diarrhea, No Abdominal Pain, No Vomiting Genitourinary Symptoms: No Dysuria Musculoskeletal: No Back Pain, No Neck Pain Skin: No Rash Neurological: No Dizziness, No Focal Weakness, No Sensory Changes Psychological: No Symptoms Endocrine: No Symptoms Hematologic/Lymphatic: No Symptoms Immunological/Allergic: No Symptoms All Other Systems: Reviewed and Negative - Past Medical History Pertinent Past Medical History: Yes Neurological History: No Pertinent History ENT History: No Pertinent History Cardiac History: Hypertension Respiratory History: No Pertinent History Endocrine Medical History: No Pertinent History Musculoskeletal History: No Pertinent History GI Medical History: GERD, Hernia History: No Pertinent History Psycho-Social History: No Pertinent History Female Reproductive Disorders: Other Other Medical History: 2008. Cholecystectomy 2012 - Past Surgical History Past Surgical History: Yes Neuro Surgical History: No Pertinent History Cardiac: No Pertinent History Respiratory: No Pertinent History Gastrointestinal: Cholecystectomy Genitourinary: No Pertinent History Musculoskeletal: No Pertinent History Female Surgical History: Section - Social History Smoking Status: Never smoker Exposure to second hand smoke: No Drug Use: none Patient Lives Alone: No - Nursing Vital Signs Nursing Vital Signs: Initial Vital Signs Temperature 98.2 F 01/01/23 10:44 Pulse Rate 94 H 01/01/23 10:44 Respiratory Rate 18 01/01/23 10:44 Blood Pressure 170/93 01/01/23 10:44 O2 Sat by Pulse Oximetry 95 01/01/23 10:44 Pain Scale Pain Intensity 5 - Physical Exam General Appearance: no apparent distress, alert Eye Exam: PERRL/EOMI, eyes nml inspection Ears, Nose, Throat Exam: normal ENT inspection, TMs normal, pharynx normal, moist mucous membranes Neck Exam: normal inspection, non-tender, supple, full range of motion Respiratory Exam: normal breath sounds, lungs clear, No respiratory distress Cardiovascular Exam: regular rate/rhythm, normal heart sounds, normal peripheral pulses Gastrointestinal/Abdomen Exam: soft, normal bowel sounds, tenderness (mild epigastric without rebound or peritoneal signs), No mass Pelvic Exam: deferred Rectal Exam: deferred Back Exam: normal inspection, normal range of motion, No CVA tenderness, No vertebral tenderness Extremity Exam: normal inspection, normal range of motion, pelvis stable Neurologic Exam: alert, oriented x 3, cooperative, normal mood/affect, nml cerebellar function, nml station & gait, sensation nml, No motor deficits Skin Exam: normal color, warm, dry, No rash Lymphatic Exam: No adenopathy SpO2 Interpretation: normal SpO2: 96 O2 Delivery: Room Air - Course Nursing assessment & vital signs reviewed: Yes Ordered Tests: Active Orders 24 hr Category Date Time Status IV Insertion STAT Care 01/01/23 10:59 Active AMYLASE Stat Lab 01/01/23 11:19 Completed CBC W DIFF Stat Lab 01/01/23 11:10 Completed CMP Stat Lab 01/01/23 11:19 Completed LIPASE Stat Lab 01/01/23 11:19 Completed Lactic Acid Stat Lab 01/01/23 11:25 Completed UA W/RFX UR CULTURE Stat Lab 01/01/23 11:10 Completed Medication Summary Generic Name Dose Route Start Last Admin Trade Name Freq PRN Reason Stop Dose Admin Levofloxacin/Dextrose 750 mg in 150 mls @ 100 mls/hr 01/02/23 10:00 01/01/23 11:17 Levofloxacin 750mg/150ml D5w IV 02/01/23 09:59 100 ml/hr Q24H10 OSIEL 100 mls/hr Administration Discontinued Medications Generic Name Dose Route Start Last Admin Trade Name Freq PRN Reason Stop Dose Admin Famotidine 20 mg 01/01/23 10:59 01/01/23 11:13 Famotidine 20 Mg/1 Vial IV 01/01/23 11:00 20 mg STAT ONE Administration Famotidine Confirm 01/01/23 11:04 Famotidine 20 Mg/1 Vial Administered 01/01/23 11:05 Dose 20 mg IV .STK-MED ONE Sodium Chloride 1,000 mls @ 999 mls/hr 01/01/23 10:59 01/01/23 11:08 Sodium Chloride 0.9% 1000 Ml IV 01/01/23 11:59 999 mls/hr .Q1H1M STA Administration Sodium Chloride Confirm 01/01/23 11:04 Sodium Chloride 0.9% 1000 Ml Administered 01/01/23 11:05 Dose 1,000 mls @ ud .ROUTE .STK-MED ONE Levofloxacin/Dextrose Confirm 01/01/23 11:04 Levofloxacin 750mg/150ml D5w Administered 01/01/23 11:05 Dose 750 mg in 150 mls @ ud IV .STK-MED ONE Ondansetron HCl 4 mg 01/01/23 10:59 01/01/23 11:09 Ondansetron Hcl 4 Mg/2 Ml Vial IV 01/01/23 11:00 4 mg STAT ONE Administration Ondansetron HCl Confirm 01/01/23 11:03 Ondansetron Hcl 4 Mg/2 Ml Vial Administered 01/01/23 11:04 Dose 4 mg .ROUTE .[facility] ONE Pantoprazole Sodium 40 mg 01/01/23 10:59 01/01/23 11:15 Pantoprazole 40 Mg Vial IV 01/01/23 11:00 40 mg STAT ONE Administration Pantoprazole Sodium Confirm 01/01/23 11:04 Pantoprazole 40 Mg Vial Administered 01/01/23 11:05 Dose 40 mg IV .[facility] ONE Lab/Rad Data: Laboratory Result Diagrams 01/01/23 11:10 01/01/23 11:19 Laboratory Results 01/01/23 01/01/23 01/01/23 Range/Units 11:25 11:19 11:10 WBC 7.9 (4.0-10.5) x10^3/uL RBC 5.10 (4.1-5.4) x10^6/uL Hgb 13.4 (12.0-16.0) g/dL Hct 42.0 (35-47) % MCV 82.4 (78-100) fL MCH 26.3 (26-32) pg MCHC 31.9 L (32-36) g/dL RDW 13.0 (11.5-14.0) % Plt Count 308 (150-450) x10^3/uL MPV 9.2 (7.5-11.0) fL Gran % 75.1 H (36.0-66.0) % Immature Gran % (Auto) 0.4 (0.00-0.4) % Nucleat RBC Rel Count 0.0 (0.00-0.1) % Eos # (Auto) 0.13 (0-0.5) x10^3/uL Immature Gran # (Auto) 0.03 (0.00-0.03) x10^3u/L Absolute Lymphs (auto) 0.97 L (1.0-4.6) x10^3/uL Absolute Monos (auto) 0.77 (0.0-1.3) x10^3/uL Absolute Nucleated RBC 0.00 (0.00-0.01) x10^3u/L Lymphocytes % 12.4 L (24.0-44.0) % Monocytes % 9.8 (0.0-12.0) % Eosinophils % 1.7 (0.00-5.0) % Basophils % 0.6 (0.0-0.4) % Absolute Granulocytes 5.90 (1.4-6.9) x10^3/uL Basophils # 0.05 (0-0.4) x10^3/uL Sodium 138 (137-145) mmol/L Potassium 4.0 (3.5-5.1) mmol/L Chloride 103 (98-107) mmol/L Carbon Dioxide 24 (22-30) mmol/L Anion Gap 15.1 H (5-15) MEQ/L BUN 13 (7-17) mg/dL Creatinine 0.67 (0.52-1.04) mg/dL Estimated GFR > 60.0 ML/MIN Glucose 109 H (74-106) mg/dL Lactic Acid 1.1 (0.4-2.0) Calcium 9.0 (8.4-10.2) mg/dL Total Bilirubin 0.60 (0.2-1.3) mg/dL AST 41 H (14-36) U/L ALT 56 H (0-35) U/L Alkaline Phosphatase 89 (38-126) U/L Serum Total Protein 6.9 (6.3-8.2) g/dL Albumin 4.1 (3.5-5.0) g/dL Amylase 39 (30-110) U/L Lipase 37 (23-300) U/L Urine Color (Yellow) Urine Appearance (Clear) Urine pH (4.6-8.0) Ur Specific [place] (1.005-1.030) Urine Protein (Negative) Urine Glucose (UA) (Negative) mg/dL Urine Ketones (Negative) Urine Blood (Negative) Urine Nitrite (Negative) Urine Bilirubin (Negative) Urine Urobilinogen (0.2) mg/dL Ur Leukocyte Esterase (Negative) U Hyaline Cast (Auto) (0-2) /LPF Urine Microscopic RBC (0-5) /HPF Urine Microscopic WBC (0-5) /HPF Ur Epithelial Cells (None Seen) /HPF Urine Bacteria (None Seen) /HPF Urine Culture Reflexed (NO) 01/01/23 Range/Units 11:10 WBC (4.0-10.5) x10^3/uL RBC (4.1-5.4) x10^6/uL Hgb (12.0-16.0) g/dL Hct (35-47) % MCV (78-100) fL MCH (26-32) pg MCHC (32-36) g/dL RDW (11.5-14.0) % Plt Count (150-450) x10^3/uL MPV (7.5-11.0) fL Gran % (36.0-66.0) % Immature Gran % (Auto) (0.00-0.4) % Nucleat RBC Rel Count (0.00-0.1) % Eos # (Auto) (0-0.5) x10^3/uL Immature Gran # (Auto) (0.00-0.03) x10^3u/L Absolute Lymphs (auto) (1.0-4.6) x10^3/uL Absolute Monos (auto) (0.0-1.3) x10^3/uL Absolute Nucleated RBC (0.00-0.01) x10^3u/L Lymphocytes % (24.0-44.0) % Monocytes % (0.0-12.0) % Eosinophils % (0.00-5.0) % Basophils % (0.0-0.4) % Absolute Granulocytes (1.4-6.9) x10^3/uL Basophils # (0-0.4) x10^3/uL Sodium (137-145) mmol/L Potassium (3.5-5.1) mmol/L Chloride (98-107) mmol/L Carbon Dioxide (22-30) mmol/L Anion Gap (5-15) MEQ/L BUN (7-17) mg/dL Creatinine (0.52-1.04) mg/dL Estimated GFR ML/MIN Glucose (74-106) mg/dL Lactic Acid (0.4-2.0) Calcium (8.4-10.2) mg/dL Total Bilirubin (0.2-1.3) mg/dL AST (14-36) U/L ALT (0-35) U/L Alkaline Phosphatase (38-126) U/L Serum Total Protein (6.3-8.2) g/dL Albumin (3.5-5.0) g/dL Amylase (30-110) U/L Lipase (23-300) U/L Urine Color Yellow (Yellow) Urine Appearance Clear (Clear) Urine pH 5.5 (4.6-8.0) Ur Specific [place] >=1.030 A (1.005-1.030) Urine Protein Trace A (Negative) Urine Glucose (UA) Negative (Negative) mg/dL Urine Ketones Negative (Negative) Urine Blood Negative (Negative) Urine Nitrite Negative (Negative) Urine Bilirubin Negative (Negative) Urine Urobilinogen 0.2 (0.2) mg/dL Ur Leukocyte Esterase Negative (Negative) U Hyaline Cast (Auto) NONE SEEN (0-2) /LPF Urine Microscopic RBC 0-2 (0-5) /HPF Urine Microscopic WBC 0-2 (0-5) /HPF Ur Epithelial Cells Few (None Seen) /HPF Urine Bacteria None Seen (None Seen) /HPF Urine Culture Reflexed NO (NO) - Progress Progress: improved, re-examined Counseled pt/family regarding: lab results, diagnosis, need for follow-up Medical Desision Making - Independent Historian Additional History obtained from: Spouse - Discussion of managment Reviewed:: Test results, Need for additional workup Agreed on:: Treatment plan, need for follow-up - Diagnostic Testing Diagnostic test were ordered, analyzed, and reviewed by me: Yes - Risk of complications The pt has a mod risk of morbidity or mortality based on: Need for prescription drug management - Departure Departure Disposition: Home Clinical Impression: Diarrhea Condition: Good Critical Care Time: No Referrals: FARIDA MASTERSON [Primary Care Provider] - Follow up/PCP as directed Instructions: Diarrhea and Travelers' Diarrhea, Adult (DC), Food Poisoning (DC), Diarrhea, Adult ED Additional Instructions: Followup with your DrMarge this week for results of the stool testing. There is also a slight elevation of the liver test and protein in the urine to followup. Drink the adult pedialyte from the pharmacy for at least the next 24 hours. resume your other meds especially for blood pressure adn followup with your for blood pressure. Return meantime if not improving, vomiting , abdominal pain or other concerns. Prescriptions: Ciprofloxacin [Cipro 500 MG] 500 mg PO BID #10 tablet
[2023-01-01 10:56] VITALS: RESP 18; TEMP 98.2
[2023-01-01] MEDS ORDERED: Pepcid 20 MG VIAL IV ONE ×2 (10:59→11:04)
[2023-01-01] MEDS ORDERED: Zofran 4 MG/2 ML VIAL IV ONE (10:59)
[2023-01-01] MEDS ORDERED: PROTONIX 40 MG IV IV ONE ×2 (10:59→11:04)
[2023-01-01] MEDS ORDERED: Sodium Chloride 0.9% 1000 ML 1,000 ML IV STA (10:59)
[2023-01-01] MEDS ORDERED: Zofran 4 MG/2 ML VIAL ONE (11:03)
[2023-01-01] MEDS ORDERED: Sodium Chloride 0.9% 1000 ML 1,000 ML ONE (11:04)
[2023-01-01] MEDS ORDERED: LEVOFLOXACIN 750MG/150ML D5W 750 MG/150 ML BAG IV ONE (11:04)
[2023-01-01 11:22] LABS: BASOPHIL % 0.6 % (0.0-0.4); Basophil (Absolute #) 0.05 x10^3/uL (0-0.4); Eosinophil % 1.7 % (0.00-5.0); Eosinophil (Absolute #) 0.13 x10^3/uL (0-0.5); Hemoglobin 13.4 g/dL (12.0-16.0); IMMATURE GRAN # 0.03 x10^3u/L (0.00-0.03); IMMATURE GRAN % 0.4 % (0.00-0.4); Lymphocyte (Absolute #) 0.97 x10^3/uL (1.0-4.6); Lymphocytes % 12.4 % (24.0-44.0); Mean Cell Volume 82.4 fL (78-100); Mean Corpuscular Hemoglobin 26.3 pg (26-32); Mean Corpuscular Hgb Concent. 31.9 g/dL (32-36); Mean Platelet Volume 9.2 fL (7.5-11.0); Monocyte (Absolute #) 0.77 x10^3/uL (0.0-1.3); Monocytes % 9.8 % (0.0-12.0); Neutrophil % 75.1 % (36.0-66.0); Platelet Count 308 x10^3/uL (150-450); White Blood Count 7.9 x10^3/uL (4.0-10.5)
[2023-01-01 11:28] LABS: Appearance Clear (Clear); Bacteria None Seen /HPF (None Seen); Bilirubin Negative (Negative); Blood Negative (Negative); Epithelial Cells Few /HPF (None Seen); Glucose, Urine Negative (Negative); Hyaline Casts NONE SEEN /LPF (0-2); Ketones Negative (Negative); Leukocyte Esterase Negative (Negative); Nitrite Negative (Negative); Ph 5.5 (4.6-8.0); Protein,Urine Dip Trace (Negative); RBC 0-2 /HPF (0-5); Specific Gravity >=1.030 (1.005-1.030); Urobilinogen 0.2 mg/dL (0.2); WBC 0-2 /HPF (0-5)
[2023-01-01 11:37] LABS: ADD URINE CULTURE? NO (NO)
[2023-01-01 11:42] LABS: ALBUMIN 4.1 g/dL (3.5-5.0); ALKALINE PHOSPHATASE 89 U/L (38-126); AMYLASE 39 U/L (30-110); ANION GAP 15.1 MEQ/L (5-15); BLOOD UREA NITROGEN 13 mg/dL (7-17); CHLORIDE 103 mmol/L (98-107); Carbon Dioxide 24 mmol/L (22-30); Creatinine 1 0.67 mg/dL (0.52-1.04); EST GLOMERULAR FILTRATION RATE > 60.0 ML/MIN; Glucose 109 mg/dL (74-106); LIPASE 37 U/L (23-300); SGOT/AST 41 U/L (14-36); SGPT/ALT 56 U/L (0-35); SODIUM 138 mmol/L (137-145); Total Protein 6.9 g/dL (6.3-8.2)
[2023-01-01 13:21] VITALS: BP 147/106; PULSE 87; O2SAT 97
[2023-01-02] MEDS ORDERED: LEVOFLOXACIN 750MG/150ML D5W 750 MG/150 ML BAG IV SCH (10:00)
[2023-01-04 06:09] LABS: Adenovirus F40/41 Not Detected (Not Detected); Astrovirus Not Detected (Not Detected); Campylobacter Not Detected (Not Detected); Cyclospora cayetanensis Not Detected (Not Detected); Entamoeba histolytica Not Detected (Not Detected); Enteroaggregative E coli Not Detected (Not Detected); Enterpathogenic E coli Not Detected (Not Detected); Entertoxigenic E coli Not Detected (Not Detected); Giardia lamblia Not Detected (Not Detected); Norovirus GI/GII Not Detected (Not Detected); Plesiomonas shigelloides Not Detected (Not Detected); Rotavirus A Not Detected (Not Detected); Salmonella Not Detected (Not Detected); Shig-toxin-producing E coli Not Detected (Not Detected); Shigella/Enterinvasive E coli Not Detected (Not Detected); Vibrio Not Detected (Not Detected); Vibrio cholerae Not Detected (Not Detected); Yersinia enterocolitica Not Detected (Not Detected)
[2023-01-04 06:42] LABS: Sapovirus Not Detected (Not Detected)
[2023-01-04 06:47] LABS: Cryptosporidium Detected (Not Detected)
== END 2023-01-01 13:33 | disposition home or self-care (01) ==
LOC: ED 10:34
DX: R19.7 Diarrhea, unspecified (principal); I10 Essential (primary) hypertension; Z79.899 Other long term (current) drug therapy
CPT/HCPCS: 36000; 36415; 80053; 81001; 82150; 83605; 83690; 85025; 87507; 96360; 96365; 96374; 96375; 99284; J1956; J2405

== ENCOUNTER 2023-02-24 08:26 | Emergency (ER) | payer BC ==
[2023-02-24 08:37] VITALS: RESP 20; TEMP 97.1; O2SAT 96
[2023-02-24] MEDS ORDERED: TORAdol 30 mg Injection IM ONE (08:53)
[2023-02-24] MEDS ORDERED: Norflex 60 MG/2 ML IM ONE (08:54)
--- NOTE | 2023-02-24 09:00 | ERPHSYRPT ---
- History of Present Illness Source: patient, other (Spouse) Patient Subjective Stated Complaint: Pt states "I think I overdid it cooking. My lower back is hurting." Triage Nursing Assessment: Pt presented alert and oriented X 3, skin pwd. Pt amblates with a slow gait. Pt able to speak in clear full sentences. PT winces when she moves Physician History: Patient is a 42-year-old female with lumbar pain x 7 days. Pain is 9 out of 10 on the pain scale and worse with movement. She states the pain started after cooking but denies any traumatic injury. It does not radiate. She denies any dysuria or hematuria. Patient has also seen her chiropractor for the pain without any resolution. She denies dysuria, hematuria, focal weakness, paresthesias, incontinence of urine/stool, paralysis. Pain is described as a dull ache but more sharp with movement. She has intermittent back pain in the past, but this episode seems to be worse. is denied. 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 Pain is 9 out of 10 on the pain scale and worse with movement. She states the pain started after cooking but denies any traumatic injury. It does not radiate. She denies any dysuria or hematuria. Patient has also seen her chiropractor for the pain without any resolution. She denies dysuria, hematuria, focal weakness, paresthesias, incontinence of urine/stool, paralysis. Pain is described as a dull ache but more sharp with movement. She has intermittent back pain in the past, but this episode seems to be worse. is denied. 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 Timing/Duration: other Method of Injury: other Back Pain Location: paraspinous muscles Severity of Pain-Max: severe Severity of Pain-Current: severe Modifying Factors: Improves With: movement Associated Symptoms: denies symptoms Previous symptoms: different symptoms Allergies/Adverse Reactions: No Known Drug Allergies Allergy (Verified 01/01/23 10:42) Home Medications: Amlodipine Besylate 5 mg [Norvasc 5 mg] 5 mg PO DAILY 04/19/14 [History] Triamterene/Hydrochlorothiazid [Triamterene-Hctz 37.5-25 mg Cp] 1 each PO DAILY 04/19/14 [History] Losartan Potassium 50 mg PO DAILY 09/10/22 [History] Omeprazole 20 mg PO DAILY 09/10/22 [History] Hx Tetanus, Diphtheria Vaccination/Date Given: Yes Hx Influenza Vaccination/Date Given: No Hx Pneumococcal Vaccination/Date Given: No Immunizations Up to Date: No Travel Risk - International Travel Have you traveled outside of the country in past 3 weeks: No - Coronavirus Screening Are you exhibiting any of the following symptoms?: No Close contact with a COVID-19 positive Pt in past 14-21 Days: No - Vaccine Status Have you recieved a Covid-19 vaccination: Yes 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[employer] - Vaccination Dates Date of 2cond Vaccination (if applicable): unknown - Review of Systems Constitutional: No Symptoms Eyes: No Symptoms Ears, Nose, & Throat: No Symptoms Respiratory: No Symptoms Cardiac: No Symptoms Abdominal/Gastrointestinal: No Symptoms Genitourinary Symptoms: No Symptoms Musculoskeletal: Back Pain Skin: No Symptoms Neurological: No Symptoms Psychological: No Symptoms Endocrine: No Symptoms Hematologic/Lymphatic: No Symptoms Immunological/Allergic: No Symptoms - Past Medical History Pertinent Past Medical History: Yes Neurological History: No Pertinent History ENT History: No Pertinent History Cardiac History: Hypertension Respiratory History: No Pertinent History Endocrine Medical History: No Pertinent History Musculoskeletal History: No Pertinent History GI Medical History: GERD, Hernia History: No Pertinent History Psycho-Social History: No Pertinent History Female Reproductive Disorders: Other Other Medical History: 2008. Cholecystectomy 2012 - Past Surgical History Past Surgical History: Yes Neuro Surgical History: No Pertinent History Cardiac: No Pertinent History Respiratory: No Pertinent History Gastrointestinal: Cholecystectomy Genitourinary: No Pertinent History Musculoskeletal: No Pertinent History Female Surgical History: Section - Social History Smoking Status: Never smoker Exposure to second hand smoke: No Drug Use: none Patient Lives Alone: No - Female History Hx Last Menstrual Period: 02/18/2023 Hx Now: No - Nursing Vital Signs Nursing Vital Signs: Initial Vital Signs Temperature 97.1 F 02/24/23 08:32 Pulse Rate 99 H 02/24/23 08:32 Respiratory Rate 20 02/24/23 08:32 Blood Pressure 153/103 02/24/23 08:32 O2 Sat by Pulse Oximetry 96 02/24/23 08:32 Pain Scale Pain Intensity 4 Hypertensive - Physical Exam General Appearance: mild distress (Mild distress due to pain.) Eye Exam: PERRL/EOMI, eyes nml inspection Ears, Nose, Throat Exam: normal ENT inspection, TMs normal, pharynx normal, moist mucous membranes Neck Exam: normal inspection, non-tender, supple, full range of motion, No meningismus, No mass, No Brudzinski, No Kernig's Respiratory Exam: normal breath sounds, lungs clear, airway intact, No respiratory distress Cardiovascular Exam: regular rate/rhythm, normal heart sounds, normal peripheral pulses, capillary refill <2 sec, No murmur Gastrointestinal Exam: soft, normal bowel sounds Back Exam: CVA tenderness (Very mild right CVA tenderness to palpation.), No vertebral tenderness Extremity Exam: normal inspection, normal range of motion Peripheral Pulses: carotid (R): 2+, carotid (L): 2+ Neurologic Exam: alert, oriented x 3, cooperative, 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 tested, normal mood/affect, nml cerebellar function, nml station & gait, sensation nml Skin Exam: normal color, warm, dry Lymphatic Exam: No adenopathy SpO2 Interpretation: normal SpO2: 96 O2 Delivery: Room Air - Course Nursing assessment & vital signs reviewed: Yes - CT Exams Abdomen/Pelvis CT Interpretation: Discussed w/radiologist (CT abdomen pelvis without contrast- OQUENDO,New hiatal hernia,and L5-S1 degenerative disc disease) Lumbar Spine CT Interpretation: Discussed w/radiologist (Lumbar spine reconstruction from abdomen [id number] broad-based disc bulge mild otherwise negative) Ordered Tests: Active Orders 24 hr Category Date Time Status ABDOMEN AND PELVIS W/0 CONTRAS [CT] Stat Exams 02/24/23 09:42 Completed RECONSTRUCTION [CT] Stat Exams 02/24/23 09:42 Completed HCG QUALITATIVE, URINE Stat Lab 02/24/23 09:33 Completed UA W/RFX UR CULTURE Stat Lab 02/24/23 09:06 Completed Medication Summary Discontinued Medications Generic Name Dose Route Start Last Admin Trade Name Freq PRN Reason Stop Dose Admin Hydromorphone HCl 1 mg 02/24/23 11:14 02/24/23 11:31 Hydromorphone 1 Mg/1ml Inj IM 02/24/23 11:15 1 mg STAT ONE Administration Hydromorphone HCl Confirm 02/24/23 11:29 Hydromorphone 1 Mg/1ml Inj Administered 02/24/23 11:30 Dose 1 mg .ROUTE .STK-MED ONE Ketorolac Tromethamine 30 mg 02/24/23 08:53 02/24/23 09:09 Ketorolac Tromethamine 30 Mg/Ml Inj IM 02/24/23 08:54 30 mg STAT ONE Administration Ketorolac Tromethamine Confirm 02/24/23 09:08 Ketorolac Tromethamine 30 Mg/Ml Inj Administered 02/24/23 09:09 Dose 30 mg .ROUTE .STK-MED ONE Orphenadrine Citrate 60 mg 02/24/23 08:54 02/24/23 09:10 Orphenadrine Citrate 60 Mg/2 Ml Vial IM 02/24/23 08:55 60 mg STAT ONE Administration Orphenadrine Citrate Confirm 02/24/23 09:08 Orphenadrine Citrate 60 Mg/2 Ml Vial Administered 02/24/23 09:09 Dose 60 mg .ROUTE .STK-MED ONE Lab/Rad Data: Laboratory Results 02/24/23 02/24/23 Range/Units 09:33 09:06 Urine Color Yellow (Yellow) Urine Appearance Clear (Clear) Urine pH 6.0 (4.6-8.0) Ur Specific [place] 1.015 (1.005-1.030) Urine Protein Negative (Negative) Urine Glucose (UA) Negative (Negative) mg/dL Urine Ketones Negative (Negative) Urine Blood Negative (Negative) Urine Nitrite Negative (Negative) Urine Bilirubin Negative (Negative) Urine Urobilinogen 0.2 (0.2) mg/dL Ur Leukocyte Esterase Negative (Negative) U Hyaline Cast (Auto) NONE SEEN (0-2) /LPF Urine Microscopic RBC 0-2 (0-5) /HPF Urine Microscopic WBC 3-5 (0-5) /HPF Ur Epithelial Cells Few (None Seen) /HPF Urine Bacteria None Seen (None Seen) /HPF Urine Culture Reflexed NO (NO) Urine HCG, Qual NEGATIVE (NEGATIVE) - Progress Progress Note: 02/24/23 12:24 Nursing note and vital signs reviewed. No food or housing insecurity is noted. UA result reviewed and shared with patient. CT of abdomen pelvis result reviewed and shared with patient/. Lumbar spine reconstruction from abdomen pelvis CT result reviewed and shared with patient/. Patient given 30 mg IM Toradol and 60 mg IM Norflex with mild improvement in pain. Patient given 1 mg IM Dilaudid before discharg Patient has no alarming symptoms, especially incontinence, focal weakness, fever,paresthesias, or IV drug use all denied. Patient refused a work excuse at this time, but she was given 15 LB weight reduction for 1 week. Counseled pt/family regarding: lab results, diagnosis, need for follow-up, rad results Medical Desision Making - Independent Historian Additional History obtained from: Spouse - Diagnostic Testing Diagnostic test were ordered, analyzed, and reviewed by me: Yes Radiological Interpretation: Reviewed by me - Risk of complications The pt has a mod risk of morbidity or mortality based on: Need for prescription drug management - Departure Departure Disposition: Home Clinical Impression: Lumbar pain, Degenerative disc disease at L5-S1 level, Hypertension, OQUENDO (nonalcoholic steatohepatitis), Hiatal hernia Condition: Stable Critical Care Time: No Referrals: FARIDA MASTERSON [Primary Care Provider] - Follow up/PCP as directed Instructions: Low Back Pain (DC) Additional Instructions: Rest. Heat. Massage. Lodine and Norflex as needed for pain. No lifting over 15 pounds for 1 week.Follow-up with your family MD for continued pain. Return to ER for increasing pain, lower extremity numbness, focal weakness, temperature greater 100.5, or incontinence of stool/urine. Forms: Work/School Release Form Prescriptions: Etodolac 400 mg [Lodine 400 mg] 400 mg PO BID PRN PRN #15 tablet PRN Reason: Pain Orphenadrine Citrate 100 mg [Norflex 100 MG Tablet] 100 mg PO BID PRN PRN #15 tab PRN Reason: Pain
[2023-02-24] MEDS ORDERED: TORAdol 30 mg Injection ONE (09:08)
[2023-02-24] MEDS ORDERED: Norflex 60 MG/2 ML ONE (09:08)
[2023-02-24 09:36] LABS: HCG URINE TEST NEGATIVE (NEGATIVE)
[2023-02-24 09:44] LABS: Appearance Clear (Clear); Bacteria None Seen /HPF (None Seen); Bilirubin Negative (Negative); Blood Negative (Negative); Epithelial Cells Few /HPF (None Seen); Glucose, Urine Negative (Negative); Hyaline Casts NONE SEEN /LPF (0-2); Ketones Negative (Negative); Leukocyte Esterase Negative (Negative); Nitrite Negative (Negative); Protein,Urine Dip Negative (Negative); RBC 0-2 /HPF (0-5); Specific Gravity 1.015 (1.005-1.030); Urobilinogen 0.2 mg/dL (0.2)
[2023-02-24 09:45] LABS: ADD URINE CULTURE? NO (NO)
--- NOTE | 2023-02-24 10:55 | XRAY ---
Indication: Lumbar pain. No known injury. Multiple contiguous axial images obtained through abdomen and pelvis without contrast. Comparison: June 09, 2014. Lung bases clear. Heart not enlarged. New small hiatal hernia. Noncontrasted stomach and bowel loops appear nonobstructed with normal appendix. New 20.5 cm fatty hepatomegaly. Stable cholecystectomy. No free fluid/air. Remaining liver, pancreas, spleen, adrenal glands, kidneys, ureters, bladder, uterus, and aorta are unremarkable for noncontrast exam. Osseous structures intact with new mild L5-S1 degenerative disc disease. No ventral or inguinal hernias. Impression: 1. New hiatal hernia, fatty hepatomegaly, and L5-S1 degenerative disc disease. 2. Remaining CT abdomen/pelvis without contrast exam continues to be negative.
--- NOTE | 2023-02-24 10:57 | XRAY ---
Indication: Lumbar pain. No known injury. Sagittal, coronal, and axial reformatted images lumbar spine obtained using raw data from same day CT abdomen/pelvis exam. Comparison: June 09, 2014 Axial images negative for acute fracture, suspicious bony lesions, or spinal canal stenosis. New mild broad-based left paracentral disc bulge at L5-S1 level. Facets are symmetric. Sagittal and coronal reformatted images demonstrates normal lumbar alignment with vertebral body heights/disc spaces maintained. No acute compression fracture or subluxation. CT abdomen/pelvis reported separately. Impression: New mild L5-S1 degenerative disc disease. Outpatient MRI may yield further information.
[2023-02-24 11:14] VITALS: BP 132/106; PULSE 76
[2023-02-24] MEDS ORDERED: Hydromorphone 1 mg/ml Injection IM ONE (11:14)
[2023-02-24] MEDS ORDERED: Hydromorphone 1 mg/ml Injection ONE (11:29)
== END 2023-02-24 11:59 | disposition home or self-care (01) ==
LOC: ED 08:26
DX: M54.50 Low back pain, unspecified (principal); M51.37 Other intervertebral disc degeneration, lumbosacral region; I10 Essential (primary) hypertension; K75.81 Nonalcoholic steatohepatitis (NASH); K44.9 Diaphragmatic hernia without obstruction or gangrene; Z79.899 Other long term (current) drug therapy
CPT/HCPCS: 74176; 76376; 81001; 81025; 96372; 99284; J1170; J1885; J2360

== ENCOUNTER 2023-02-25 09:19 | Emergency (ER) | payer BC ==
--- NOTE | 2023-02-25 09:32 | ERPHSYRPT ---
- History of Present Illness Time Seen by Provider: 02/25/23 09:31 Source: patient Exam Limitations: no limitations Physician History: This is an obese 42-year-old white female patient Dr. Hinds who has complaints of low back pain with sciatica shooting down the left lower extremity. She has no loss of bowel control. She has no urinary incontinence. Patient denies chest pain. Patient denies shortness of breath. Patient denies abdominal pain. Patient was seen here on 02/24/2023 for the same issue. She underwent a CT scan of the abdomen pelvis. The impression is new hiatal hernia with L5-S1 degenerative disc disease. The aorta was unremarkable on the noncontrasted study. CT scan of the lumbar spine (reconstruction) showed broad-based disc bulge at L5-S1. There are no acute fractures, suspicious bony lesions or spinal canal stenosis. Patient was discharged to home on Lodine (nonsteroidal anti- inflammatory) and orphenadrine for this use muscle relaxant) patient did not take her pain medicine this morning. Patient states that after she received a Dilaudid dose yesterday, the pain improved. Patient states that the Lodine and orphenadrine did not help much and relieving her pain. Patient has a history of hypertension and gastroesophageal reflux disease. Patient denies any traumatic injury. Timing/Duration: day(s) (8), worse Method of Injury: other (No injury) Quality: sharp, stabbing Back Pain Location: lumbar spine Back Pain Radiation: lower legs (Left side) Severity of Pain-Max: moderate Severity of Pain-Current: moderate Modifying Factors: Improves With: movement Associated Symptoms: weakness (Left), lower back pain, No urinary incontinence, No loss of bowel control, No numbness in legs/feet, No sensory/motor loss Previous symptoms: same symptoms as today, recently seen, recently treated Allergies/Adverse Reactions: No Known Drug Allergies Allergy (Verified 02/25/23 09:35) Home Medications: Amlodipine Besylate 5 mg [Norvasc 5 mg] 5 mg PO DAILY 04/19/14 [History] Triamterene/Hydrochlorothiazid [Triamterene-Hctz 37.5-25 mg Cp] 1 each PO DAILY 04/19/14 [History] Losartan Potassium 50 mg PO DAILY 09/10/22 [History] Omeprazole 20 mg PO DAILY 09/10/22 [History] Hx Tetanus, Diphtheria Vaccination/Date Given: Yes Hx Influenza Vaccination/Date Given: No Hx Pneumococcal Vaccination/Date Given: No Travel Risk - International Travel Have you traveled outside of the country in past 3 weeks: No - Coronavirus Screening Are you exhibiting any of the following symptoms?: No Close contact with a COVID-19 positive Pt in past 14-21 Days: No - Vaccine Status Have you recieved a Covid-19 vaccination: Yes 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: Purple Harry - Vaccination Dates Date of 2cond Vaccination (if applicable): unknown - Review of Systems Constitutional: No Symptoms Eyes: No Symptoms Ears, Nose, & Throat: No Symptoms Respiratory: No Symptoms Cardiac: No Symptoms Abdominal/Gastrointestinal: No Symptoms Genitourinary Symptoms: No Symptoms Musculoskeletal: Back Pain Skin: No Symptoms Neurological: No Symptoms Psychological: No Symptoms Endocrine: No Symptoms Hematologic/Lymphatic: No Symptoms Immunological/Allergic: No Symptoms All Other Systems: Reviewed and Negative - Past Medical History Pertinent Past Medical History: Yes Neurological History: No Pertinent History ENT History: No Pertinent History Cardiac History: Hypertension Respiratory History: No Pertinent History Endocrine Medical History: No Pertinent History Musculoskeletal History: No Pertinent History GI Medical History: GERD, Hernia History: No Pertinent History Psycho-Social History: No Pertinent History Female Reproductive Disorders: Other Other Medical History: 2008. Cholecystectomy 2012 - Past Surgical History Past Surgical History: Yes Neuro Surgical History: No Pertinent History Cardiac: No Pertinent History Respiratory: No Pertinent History Gastrointestinal: Cholecystectomy Genitourinary: No Pertinent History Musculoskeletal: No Pertinent History Female Surgical History: Section - Social History Smoking Status: Never smoker Exposure to second hand smoke: No Drug Use: none Patient Lives Alone: No - Nursing Vital Signs Nursing Vital Signs: Pain Scale Pain Intensity 10 - Physical Exam General Appearance: no apparent distress, alert, anxiety, obese Eye Exam: PERRL/EOMI, eyes nml inspection Ears, Nose, Throat Exam: normal ENT inspection, moist mucous membranes Neck Exam: normal inspection, non-tender, supple, full range of motion Respiratory Exam: airway intact, No chest tenderness, No respiratory distress Gastrointestinal Exam: No tenderness Pelvic Exam: not done Rectal Exam: not done Back Exam: normal inspection, decreased range of motion, muscle spasm, No CVA tenderness, No vertebral tenderness Extremity Exam: normal inspection, normal range of motion, pelvis stable Neurologic Exam: alert, oriented x 3, cooperative, 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, normal mood/affect Skin Exam: normal color, warm, dry Lymphatic Exam: No adenopathy SpO2 Interpretation: normal O2 Delivery: Room Air - Course Nursing assessment & vital signs reviewed: Yes Ordered Tests: Active Orders 24 hr Category Date Time Status IV Insertion STAT Care 02/25/23 09:41 Active Medication Summary Discontinued Medications Generic Name Dose Route Start Last Admin Trade Name Jinq PRN Reason Stop Dose Admin Methylprednisolone Sodium 0 mg 02/25/23 09:43 02/25/23 09:50 Succinate 125 mg/ Sterile IV 02/25/23 09:44 125 mg Water 2 ml STAT ONE Administration Hydromorphone HCl 1 mg 02/25/23 09:41 02/25/23 09:53 Hydromorphone 1 Mg/1ml Inj IV 02/25/23 09:42 1 mg STAT ONE Administration Hydromorphone HCl Confirm 02/25/23 09:47 Hydromorphone 1 Mg/1ml Inj Administered 02/25/23 09:48 Dose 1 mg .ROUTE .STK-MED ONE Methylprednisolone Sodium Succinate Confirm 02/25/23 09:47 Methylprednis Sod Succ 125 Mg/2 Ml Vial Administered 02/25/23 09:48 Dose 125 mg .ROUTE .STK-MED ONE Ondansetron HCl 4 mg 02/25/23 09:41 02/25/23 09:49 Ondansetron Hcl 4 Mg/2 Ml Vial IV 02/25/23 09:42 4 mg STAT ONE Administration Ondansetron HCl Confirm 02/25/23 09:46 Ondansetron Hcl 4 Mg/2 Ml Vial Administered 02/25/23 09:47 Dose 4 mg .ROUTE .STK-MED ONE Orphenadrine Citrate 60 mg 02/25/23 09:42 02/25/23 09:52 Orphenadrine Citrate 60 Mg/2 Ml Vial IV 02/25/23 09:43 60 mg STAT ONE Administration Orphenadrine Citrate Confirm 02/25/23 09:47 Orphenadrine Citrate 60 Mg/2 Ml Vial Administered 02/25/23 09:48 Dose 60 mg .ROUTE .STK-MED ONE Sterile Water Confirm 02/25/23 09:46 Water For Injection,Sterile 10 Ml Vial Administered 02/25/23 09:47 Dose 10 ml IJ .STK-MED ONE - Progress Progress: improved, pain not gone completely Progress Note: 02/25/23 10:12 This patient's medical issue is 1 of low complexity. Level complex in the rosales p performed is based on review the patient's past medical history, review of the patient's medication list, history of present illness and physical findings on examination. No laboratory or radiographic studies are necessary in this patient today. I did review the results of the radiographic studies from yesterday as well as laboratory studies that were performed on 02/07/2023. The patient and I both agree that a CT scan of the abdomen pelvis with contrast would not benefit her in terms of therapy or diagnosis. I have very low suspicion that the patient has a dissecting aortic aneurysm. The aorta is normal on the noncontrasted study on 02/24/2023. We have opted to place an intravenous line and provide the patient with intravenous Dilaudid, Norflex, Zofran, and Solu-Medrol. We will send prescription of oral Dilaudid remotely to the patient's pharmacy as well as prednisone. Patient is told to continue the Norflex and to stop the nonsteroidal anti-inflammatory drug Counseled pt/family regarding: diagnosis, need for follow-up Medical Desision Making - Independent Historian Additional History obtained from: Spouse - Diagnostic Testing Diagnostic test were ordered, analyzed, and reviewed by me: Yes - Risk of complications The pt has a mod risk of morbidity or mortality based on: Need for prescription drug management - Departure Departure Disposition: Home Clinical Impression: Bulging lumbar disc Condition: Stable Critical Care Time: No Referrals: FARIDA HINDS [Primary Care Provider] - Follow up/PCP as directed Additional Instructions: Bedrest. Stop your Lodine(etodolac). Continue your Norflex (orphenadrine). Take your new medication as prescribed. Follow-up with your primary care provider on 02/27/2023 to make arranges for follow-up appointment and referral to back specialist for further pain management and intervention as indicated Prescriptions: Prednisone 10 mg [Deltasone 10 mg] 10 mg PO TID #12 tablet Hydromorphone HCl 4 mg [Dilaudid 4 MG Tab] 2 mg PO Q4-6HPRN PRN #10 units MDD 5 PRN Reason: Moderate To Severe Pain
[2023-02-25] MEDS ORDERED: Hydromorphone 1 mg/ml Injection IV ONE (09:41)
[2023-02-25] MEDS ORDERED: Zofran 4 MG/2 ML VIAL IV ONE (09:41)
[2023-02-25] MEDS ORDERED: Norflex 60 MG/2 ML IV ONE (09:42)
[2023-02-25] MEDS ORDERED: solu-MEDROL 125 MG, Sterile H2O 10 ml 2 ML IV ONE ×2 (09:43)
[2023-02-25] MEDS ORDERED: Sterile H2O 10 ml IJ ONE (09:46)
[2023-02-25] MEDS ORDERED: Zofran 4 MG/2 ML VIAL ONE (09:46)
[2023-02-25] MEDS ORDERED: Norflex 60 MG/2 ML ONE (09:47)
[2023-02-25] MEDS ORDERED: Hydromorphone 1 mg/ml Injection ONE (09:47)
[2023-02-25] MEDS ORDERED: solu-MEDROL ONE (09:47)
[2023-02-25 10:18] VITALS: TEMP 97.2
[2023-02-25 10:44] VITALS: O2SAT 95
[2023-02-25 11:48] VITALS: BP 126/84; PULSE 64; RESP 16
== END 2023-02-25 11:40 | disposition home or self-care (01) ==
LOC: ED 09:19
DX: M51.36 Other intervertebral disc degeneration, lumbar region (principal); M54.42 Lumbago with sciatica, left side; I10 Essential (primary) hypertension; Z79.899 Other long term (current) drug therapy
CPT/HCPCS: 36000; 96374; 96375; 99284; J1170; J2360; J2405; J2930

== ENCOUNTER 2023-04-05 12:47 | Day surgery (SDC) | payer BC ==
[2023-04-05] MEDS ORDERED: Decadron 4 MG INJ IV ONE (12:48)
[2023-04-05] MEDS ORDERED: Sodium Chloride 0.9(Preservative Free) 10 ML IJ ONE (12:48)
[2023-04-05 13:56] LABS: HCG URINE TEST NEGATIVE (NEGATIVE)
[2023-04-05] MEDS ORDERED: DIPRIVAN 200 MG/20 ML IV ONE (15:07)
[2023-04-05] MEDS ORDERED: Lactated Ringers 1,000 ML IV ONE (15:52)
--- NOTE | 2023-04-05 16:50 | XRAY ---
Indication: Left L4-S1 transforaminal ZEINAB. Intraoperative fluoroscopy provided for 30 seconds. 7 digital spot image submitted for interpretation demonstrates posterior needle tips projecting over the expected left L4 and L5 nerve roots. Small amount of contrast injected for needle tip placement. Correlate with intraoperative findings/report.
--- NOTE | 2023-04-05 16:56 | XRAY ---
30 seconds of fluoroscopy was used in surgery for a left L4-S1 transforaminal ZEINAB.
== END 2023-04-05 15:35 | disposition home or self-care (01) ==
LOC: SDC-PAIN 12:47
PROVIDERS: ATTEND Psychiatry & Neurology Pain Medicine
DX: M54.16 Radiculopathy, lumbar region (principal)
CPT/HCPCS: 64483; 64484; 72100; 77003; 81025; J1100; J2704; Q9966

== ENCOUNTER 2023-07-26 22:49 | Emergency (ER) | payer BC ==
--- NOTE | 2023-07-26 23:03 | ERPHSYRPT ---
- History of Present Illness Time Seen by Provider: 07/26/23 23:02 Source: patient Exam Limitations: no limitations Physician History: Patient is a 42-year-old female presents to the emergency department for evaluation of left sided rib pain. Patient states she was lifting a box on Monday when she felt a pulling sensation across her left rib. Patient went to her chiropractor yesterday and feels that that exacerbated her pain. Pain described as an ache that is localized. Pain worse with movement and palpation. Pain improved with rest. No associated nausea vomiting or diaphoresis. Patient has no cardiac history. Patient has history of hypertension however th is is well-controlled with her blood pressure medication. She voices no other complaints or concerns at this time. Portions of this note were created with voice recognition technology. There may be grammatical, spelling, punctuation or sound alike errors Timing/Duration: today Severity: moderate Modifying Factors: Improves With: movement Associated Symptoms: denies symptoms Allergies/Adverse Reactions: No Known Drug Allergies Allergy (Verified 07/26/23 23:01) Home Medications: Amlodipine Besylate 5 mg [Norvasc 5 mg] 5 mg PO DAILY 04/19/14 [History] Triamterene/Hydrochlorothiazid [Triamterene-Hctz 37.5-25 mg Cp] 1 each PO DAILY 04/19/14 [History] Losartan Potassium 50 mg PO DAILY 09/10/22 [History] Omeprazole 20 mg PO DAILY 09/10/22 [History] Hx Tetanus, Diphtheria Vaccination/Date Given: Yes Hx Influenza Vaccination/Date Given: No Hx Pneumococcal Vaccination/Date Given: No - Review of Systems Constitutional: No Symptoms, No Fever, No Chills Eyes: No Symptoms Ears, Nose, & Throat: No Symptoms Respiratory: No Symptoms, No Cough, No Dyspnea Cardiac: No Symptoms, No Chest Pain, No Edema, No Syncope Abdominal/Gastrointestinal: No Symptoms, No Abdominal Pain, No Nausea, No Vom iting, No Diarrhea Genitourinary Symptoms: No Symptoms, No Dysuria Musculoskeletal: No Symptoms, No Back Pain, No Neck Pain Skin: No Symptoms, No Rash Neurological: No Symptoms, No Dizziness, No Focal Weakness, No Sensory Changes Psychological: No Symptoms Endocrine: No Symptoms Hematologic/Lymphatic: No Symptoms Immunological/Allergic: No Symptoms All Other Systems: Reviewed and Negative - Past Medical History Pertinent Past Medical History: Yes Neurological History: No Pertinent History ENT History: No Pertinent History Cardiac History: Hypertension Respiratory History: No Pertinent History Endocrine Medical History: No Pertinent History Musculoskeletal History: No Pertinent History GI Medical History: GERD, Hernia History: No Pertinent History Psycho-Social History: No Pertinent History Female Reproductive Disorders: Other Other Medical History: 2008. Cholecystectomy 2012 - Past Surgical History Past Surgical History: Yes Neuro Surgical History: No Pertinent History Cardiac: No Pertinent History Respiratory: No Pertinent History Gastrointestinal: Cholecystectomy Genitourinary: No Pertinent History Musculoskeletal: No Pertinent History Female Surgical History: Section - Female History Hx Now: No - Social History Smoking Status: Never smoker Exposure to second hand smoke: No Drug Use: none Patient Lives Alone: No - Nursing Vital Signs Nursing Vital Signs: Initial Vital Signs Temperature 98.1 F 07/26/23 23:01 Pulse Rate 85 07/26/23 23:01 Respiratory Rate 18 07/26/23 23:01 Blood Pressure 162/97 07/26/23 23:01 O2 Sat by Pulse Oximetry 96 07/26/23 23:01 Pain Scale Pain Intensity 6 - Physical Exam General Appearance: no apparent distress, alert Eye Exam: PERRL/EOMI, eyes nml inspection Ears, Nose, Throat Exam: normal ENT inspection, moist mucous membranes Neck Exam: normal inspection, non-tender, supple, full range of motion Respiratory Exam: normal breath sounds, lungs clear, airway intact, No respiratory distress Cardiovascular Exam: regular rate/rhythm, normal heart sounds, normal peripheral pulses Gastrointestinal/Abdomen Exam: soft, normal bowel sounds, No tenderness, No mass Back Exam: normal inspection, normal range of motion, No CVA tenderness, No vertebral tenderness Extremity Exam: normal inspection, normal range of motion, pelvis stable Neurologic Exam: alert, oriented x 3, cooperative, normal mood/affect, sensation nml, No motor deficits Skin Exam: normal color, warm, dry, No rash Lymphatic Exam: No adenopathy SpO2 Interpretation: normal SpO2: 96 O2 Delivery: Room Air - Course Nursing assessment & vital signs reviewed: Yes EKG Interpreted by Me: RATE (80), Sinus Rhythm, Left [place] Deviation (Borderline left axis deviation), NORMAL INTERVALS Ordered Tests: Active Orders 24 hr Category Date Time Status EKG-ER Only STAT Care 07/26/23 23:07 Active CHEST WITHOUT CONTRAST [CT] Stat Exams 07/26/23 22:57 Completed HCG QUALITATIVE, URINE Stat Lab 07/26/23 23:13 Completed Medication Summary Discontinued Medications Generic Name Dose Route Start Last Admin Trade Name Shashank PRMala Reason Stop Dose Admin Dexamethasone Sodium Phosphate 10 mg 07/27/23 00:37 07/27/23 00:42 Dexamethasone Sod Phosphate 10 Mg/Ml IM 07/27/23 00:38 10 mg STAT ONE Administration Dexamethasone Sodium Phosphate Confirm 07/27/23 00:39 Dexamethasone Sod Phosphate 10 Mg/Ml Administered 07/27/23 00:40 Dose 10 mg .ROUTE .STK-MED ONE Ketorolac Tromethamine 30 mg 07/26/23 23:00 07/26/23 23:16 Ketorolac Tromethamine 30 Mg/Ml Inj IM 07/26/23 23:01 30 mg STAT ONE Administration Ketorolac Tromethamine Confirm 07/26/23 23:15 Ketorolac Tromethamine 30 Mg/Ml Inj Administered 07/26/23 23:16 Dose 30 mg .ROUTE .STK-MED ONE Lab/Rad Data: Laboratory Results 07/26/23 Range/Units 23:13 Urine HCG, Qual NEGATIVE (NEGATIVE) - Progress Progress: improved Progress Note: 42-year-old female presents emergency department for evaluation of left-sided rib pain. Symptoms started 2 days ago after lifting. Pain worsened after seeing her chiropractor. Pain worse with palpation. Overlying soft tissue intact. EKG sinus rhythm. CT chest negative for acute pathology. Pain improved somewhat with Toradol. Patient received Decadron for pain control. No indication for further workup at this time. Will discharge home. Patient agrees to follow-up with primary care doctor within 48 hours for evaluation. Portions of this note were created with voice recognition technology. There may be grammatical, spelling, punctuation or sound alike errors Complexity problem addressed is moderate acute complicated No critical care time Complexity of data reviewed and analyzed is moderate. Test ordered test reviewed results analyzed and correlated clinically with history and physical exam. Risk of complication and or risk of morbidity/mortality patient management is moderate. Patient received long-acting steroid/Decadron Vital stable. Time spent to discharge patient approximately 15 minutes. Plan of care established for shared decision making. No social determinants of health present impede follow-up. Portions of this note were created with voice recognition technology. There may be grammatical, spelling, punctuation or sound alike errors 07/27/23 01:05 Counseled pt/family regarding: diagnosis, need for follow-up - Departure Departure Disposition: Home Clinical Impression: Intercostal muscle strain Condition: Stable Critical Care Time: No Referrals: FARIDA MASTERSON [Primary Care Provider] - Follow up/PCP as directed Additional Instructions: Discharge/Care Plan WYATT WELLS was seen on 07/27/23 in the Emergency Room. The patient was counseled regarding Diagnosis,Lab results, Imaging studies, need for follow up and when to return to the Emergency Room. Prescriptions given: Discharge Note I have spoken with the patient and/or caregivers. I have explained the patient's condition, diagnosis and treatment plan based on the information available to me at this time. I have answered the patient's and/or caregiver's questions and addressed any concerns. The patient and/or caregivers have as good understanding of the patient's diagnosis, condition and treatment plan as can be expected at this point. The vital signs have been stable. The patient's condition is stable and appropriate for discharge from the emergency department. The patient will pursue further outpatient evaluation with the primary care physician or other designated or consulting physician as outlined in the discharge instructions. The patient and/or caregivers are agreeable to this plan of care and follow-up instructions have been explained in detail. The patient and/or caregivers have received these instruction. The patient/and or caregivers are aware that any significant change in condition or worsening of symptoms should prompt an immediate return to this or the closest emergency department or call 911.
[2023-07-26 23:07] VITALS: TEMP 98.1
[2023-07-26] MEDS ORDERED: TORAdol 30 mg Injection ONE (23:15)
[2023-07-26] MEDS: TORAdol 30 mg Injection IM ONE (23:16)
[2023-07-26 23:21] LABS: HCG URINE TEST NEGATIVE (NEGATIVE)
--- NOTE | 2023-07-27 00:22 | XRAY ---
CLINICAL HISTORY: pain COMPARISON: None. TECHNIQUE: Contiguous axial images were obtained from the neck base through the upper abdomen without contrast. In addition, sagittal and coronal reconstructions were performed to potentially increase the sensitivity for the detection of disease. CT scan was performed according to ALARA (as low as reasonable achievable). FINDINGS: The lungs are clear, with no focal areas of consolidation. No pulmonary nodules are seen. The central airways are patent. There are no pleural effusions. No pneumothorax is seen. Evaluation of the mediastinum and calli is limited due to the lack of intravenous contrast. No axillary or mediastinal adenopathy is identified. The thyroid is unremarkable. The heart, aorta, and pulmonary arteries are of normal size and configuration. There are no appreciable coronary artery and aortic atherosclerotic calcifications. No pericardial effusion is identified. Imaged portions of the upper abdomen are unremarkable. No aggressive appearing osseous lesions are identified.Gall bladder is not seen. IMPRESSION: 1.Unremarkable study Electronically Signed by: Francisco Dias MD. (07/27/2023 00:18:56 EDT)
[2023-07-27] MEDS ORDERED: DECADRON 10MG INJ. ONE (00:39)
[2023-07-27] MEDS: DECADRON 10MG INJ. IM ONE (00:42)
[2023-07-27 01:04] VITALS: O2SAT 96
[2023-07-27 01:05] VITALS: BP 140/96; PULSE 80; RESP 18
== END 2023-07-27 01:09 | disposition home or self-care (01) ==
LOC: ED 22:49
DX: S29.011A Strain of muscle and tendon of front wall of thorax, initial encounter (principal); X50.0XXA Overexertion from strenuous movement or load, initial encounter; I10 Essential (primary) hypertension; Z79.899 Other long term (current) drug therapy
CPT/HCPCS: 71250; 81025; 93005; 96372; 99284; J1100; J1885